=== PATIENT | female | born 1955 | race Caucasian/White ===

== ENCOUNTER → 2018-02-02 | Day surgery (SDC) | payer BC ==
[~2018-02-02] MED LIST: AMLODIPINE BESYL5 MG PO; ASPIR 8181 MG PO; CALCIUM; CLONIDINE1 EAC1 TD; CRESTOR5 MG PO; FENOFIBRATE PO; FENTANYL CITRATE/PF 100MCG/2 ML INJ ONE; GLUCOSAMINE; LINZESS PO; LIPITOR PO; LISINOPRIL40 MG PO; LOSARTAN POTAS100 MG PO; METOPROLOL PO; METOPROLOL TAR100 MG PO; METOPROLOL TART50 MG PO; MIDAZOLAM HCL 2 MG/2 ML VIAL ONE; OMEPRAZOLE40 MG PO; PANTOPRAZOLE SO40 MG PO; PRISTIQ ER50 MG PO; PROPOFOL IV EMULSION 10 MG/ML 20 ML VIAL ONE; TRILIPIX135 MG PO; TYLENOL; VENLAFAXINE HCL75 M2 PO; [UNRECOGNIZED DRUG - OTHER] PO
--- NOTE | 2018-02-02 14:40 | Operative Report ---
DATE OF PROCEDURE: February 02, 2018 REFERRING PHYSICIAN: Dr. Rukhsana Abbasi. PROCEDURE PERFORMED: Esophagogastroduodenoscopy with biopsies. INDICATIONS FOR ESOPHAGOGASTRODUODENOSCOPY: Upper abdominal pain, nausea. MEDICATION: Patient was done under MAC. Please see anesthesiologist's note. PROCEDURE: With patient in the left lateral decubitus position, the flexible fiberoptic Olympus gastroscope was introduced into the esophagus under direct visualization without any difficulty. The esophagus appeared to be within normal limits. The scope was then advanced with ease into the stomach, traversing a large hiatal hernia measured at 5 cm in length, and the lower esophageal sphincter appeared somewhat incompetent. The mucosa overlying the antrum revealed some patchy intense erythema and low-grade to moderate edema, and biopsies were obtained and sent to stain for H. pylori. Several hyperplastic-appearing polyps were noted in the body. Some were partially excised with the cold biopsy forceps. Pylorus appeared to be of normal contour and shape, was intubated with ease, and the scope was advanced all the way to the 2nd portion of the duodenum. The scope was then withdrawn slowly. Mucosa overlying the proximal 2nd portion and the duodenal bulb appeared to be within normal limits. The scope was then withdrawn back into the stomach and retroflexed, and the previously described hiatal hernia was also noted in the retroflexed position. The scope was then straightened out. It was subsequently withdrawn. Patient tolerated the procedure well. IMPRESSION: 1. Normal esophagus. 2. Lower esophageal sphincter somewhat incompetent. 3. Large hiatal hernia approximately 5 cm in length. 4. Gastritis biopsied. Biopsies sent to stain for H. pylori. 5. Gastric polyps, hyperplastic-appearing, body, some partially excised with the cold biopsy forceps. PLAN: Follow up histology. Continue current PPI therapy. Consider adding Carafate if the upper abdominal pain does not resolve. Job#: [id number] EV cc:RUKHSANA ABBASI MD
== END | disposition home or self-care (01) ==
LOC: ENDO 10:28
PROVIDERS: ATTEND Internal Medicine Gastroenterology
DX: K31.7 Polyp of stomach and duodenum (principal); K44.9 Diaphragmatic hernia without obstruction or gangrene; R10.10 Upper abdominal pain, unspecified; R11.0 Nausea; R14.0 Abdominal distension (gaseous); Z86.010 Personal history of colon polyps; I10 Essential (primary) hypertension; K21.9 Gastro-esophageal reflux disease without esophagitis; F41.9 Anxiety disorder, unspecified; E78.00 Pure hypercholesterolemia, unspecified; K22.0 Achalasia of cardia
CPT/HCPCS: 43239; 93005; J2250

== ENCOUNTER 2018-04-27 15:23 | Emergency (ER) | payer BC ==
[~2018-04-27] VITALS: Ht 157.5 cm; Wt 53.5 kg
[~2018-04-27 15:23] MED LIST changes: -FENTANYL CITRATE/PF 100MCG/2 ML INJ ONE; -MIDAZOLAM HCL 2 MG/2 ML VIAL ONE; -PROPOFOL IV EMULSION 10 MG/ML 20 ML VIAL ONE
--- OUTSIDE RECORDS SUMMARY | 2018-04-27 15:26 | XMS REPORT | Clinical Summary ---
Author Author JESS [facility] Address Unknown Phone Unavailable Care Team Providers Care Records Specialist Name Role Phone NickSam hsieh PCP Sharpless Unavailable Allergies No Known Allergies Medications End Date Status Medication Sig Dispensed Refills Start Date Active metoprolol (LOPRESSOR) Take 100 mg 0 100 MG tablet by mouth 2 (two) times daily. Active lisinopril Take 20 mg by 0 (PRINIVIL,ZESTRIL) 20 MG mouth daily. tablet Active atorvastatin (LIPITOR) 10 Take 10 mg by 0 MG tablet mouth daily. Active Problems Not on file Social History Date Tobacco Use Types Packs/Day Years Used Unknown If Ever Smoked Alcohol Use Drinks/Week oz/Week Comments Yes Sex Assigned at Date Recorded Not on file Industry Job Start Date Occupation Not on file Not on file Not on file Travel End Travel History Travel Start No recent travel history available. Last Filed Vital Signs Not on file Plan of Treatment Not on file Results Not on fileafter 04/26/2017 Insurance Payer Benefit Subscriber ID Type Phone Address Plan / Group [facility] H[facility]/POS CARE POS SELECT CHOICE
[2018-04-27] MEDS ORDERED: SODIUM CHLORIDE 0.9% 1000ML 1,000 ML IV ONE (17:45)
[2018-04-27 17:52] LABS: BASOPHILS % 0.2 % (0.0-1.0); EOSINOPHILS % 0.2 % (0.0-6.0); HEMATOCRIT 32.3 % (34.2-44.1); HEMOGLOBIN 10.5 g/dL (12.0-16.0); LYMPHOCYTES # (AUTO) 1.1 (1.0-3.2); LYMPHOCYTES % 9.1 % (18.0-39.1); MEAN CORPUSCULAR HGB CONC 32.5 g/dL (31-35); MEAN CORPUSCULAR VOLUME 89.2 fL (81-99); MONOCYTES # (AUTO) 0.8 (0.2-0.8); MONOCYTES % 6.8 % (4.4-11.3); NEUTROPHILS # (AUTO) 10.2 (2.1-6.9); NEUTROPHILS % 83.3 % (38.7-80.0); PLATELET COUNT 214 x10e3/uL (140-360); RED BLOOD COUNT 3.62 x10e6/uL (3.6-5.1); RED CELL DISTRIBUTION WIDTH 13.1 % (11.7-14.4)
[2018-04-27] MEDS ORDERED: ONDANSETRON HCL INJ 2 MG/ML VIAL ONE (17:52)
[2018-04-27] MEDS ORDERED: KETOROLAC TROMETHAMINE 30 MG/ML VIAL IV ONE (18:00)
[2018-04-27 18:04] LABS: ANION GAP 15.8 mmol/L (8-16); BLOOD UREA NITROGEN 8 mg/dL (7-26); BUN/CREATININE RATIO 11 (6-25); CALCIUM 9.5 mg/dL (8.4-10.2); CARBON DIOXIDE 21 mmol/L (22-29); CHLORIDE 102 mmol/L (98-107); CLARITY,URINE SL CLOUDY (CLEAR); COLOR,URINE YELLOW (YELLOW); CREATININE, SERUM 0.74 mg/dL (0.57-1.11); EST GLOMERULAR FILTRATION RATE > 60 ML/MIN (60-); GLUCOSE 133 mg/dL (74-118); LEUKOCYTE ESTERASE ,URINE TRACE (NEGATIVE); NITRITE,URINE NEGATIVE (NEGATIVE); POTASSIUM 3.8 mmol/L (3.5-5.1); PROTEIN,URINE DIPSTICK TRACE (NEGATIVE); SODIUM 135 mmol/L (136-145)
[2018-04-27 18:05] LABS: BILIRUBIN,URINE NEGATIVE (NEGATIVE); KETONES,URINE TRACE (NEGATIVE); URINE UROBILINOGEN 0.2 mg/dL (0.2 - 1)
[2018-04-27] MEDS ORDERED: ONDANSETRON HCL INJ 2 MG/ML VIAL IV ONE (18:30)
[2018-04-27 18:35] LABS: BACTERIA,URINE FEW /HPF; EPITHELIAL CELLS,URINE FEW /LPF
[2018-04-27 18:36] LABS: CALCIUM OXALATE CRYSTALS,UR MODERATE (FEW)
--- NOTE | 2018-04-27 19:48 | Diagnostic Imaging Report ---
CHEST 2 VIEWS, Technique: CHEST 2 VIEWS Clinical history: Fever Comparison: 08/02/2015 DISCUSSION: Borderline cardiomegaly. Small to moderate hiatal hernia. Well-defined right middle lobe and lingular opacity and no effusion or pneumothorax. 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 Recommend 6-8 week follow-up to reassess. Signed by: Dr Hannah Ordaz MD on 04/27/2018 7:44 PM
[2018-04-27 20:51] VITALS: BP 125/70
== END 2018-04-27 21:08 | disposition home or self-care (01) ==
LOC: ER 15:23
DX: R50.9 Fever, unspecified (principal); N30.90 Cystitis, unspecified without hematuria; B34.9 Viral infection, unspecified
CPT/HCPCS: 36415; 71046; 80048; 81001; 85025; 87400; 99284; J1885; J2405; J7030

== ENCOUNTER 2018-05-02 16:57 | Inpatient (IN) | payer BC ==
[~2018-05-02] VITALS: Ht 157.5 cm; Wt 54.4 kg
--- OUTSIDE RECORDS SUMMARY | 2018-05-02 16:59 | XMS REPORT | Clinical Summary ---
Author Author JESS [facility] Address Unknown Phone Unavailable Care Team Providers Care Tube Former Operator Name Role Phone NickSam hsieh PCP Sharpless [...] Not on file Results Not on fileafter 05/01/2017 Insurance Payer Benefit Subscriber ID Type Phone Address Plan / Group [facility]/POS CARE POS SELECT CHOICE
[2018-05-02] MEDS ORDERED: SODIUM CHLORIDE 0.9% 1000ML 1,000 ML IV SCH ×2 (17:45→18:49)
[2018-05-02] MEDS ORDERED: PROMETHAZINE 12.5MG/ NACL 0.9% 12.5 MG/50 ML BAG IV ONE (17:45)
[2018-05-02 18:28] LABS: BASOPHILS % 0.3 % (0.0-1.0); EOSINOPHILS # (AUTO) 0.1 (0.0-0.4); EOSINOPHILS % 1.2 % (0.0-6.0); HEMATOCRIT 30.7 % (34.2-44.1); HEMOGLOBIN 10.1 g/dL (12.0-16.0); LYMPHOCYTES # (AUTO) 1.4 (1.0-3.2); MEAN CORPUSCULAR HEMOGLOBIN 28.7 pg (28-32); MEAN CORPUSCULAR HGB CONC 32.9 g/dL (31-35); MEAN CORPUSCULAR VOLUME 87.2 fL (81-99); MONOCYTES # (AUTO) 1.3 (0.2-0.8); MONOCYTES % 13.3 % (4.4-11.3); NEUTROPHILS # (AUTO) 6.7 (2.1-6.9); NEUTROPHILS % 69.8 % (38.7-80.0); PLATELET COUNT 334 x10e3/uL (140-360); RED BLOOD COUNT 3.52 x10e6/uL (3.6-5.1); RED CELL DISTRIBUTION WIDTH 12.7 % (11.7-14.4)
[2018-05-02 18:32] LABS: BILIRUBIN,URINE 1+ (NEGATIVE); CLARITY,URINE SL CLOUDY (CLEAR); COLOR,URINE YELLOW (YELLOW); KETONES,URINE TRACE (NEGATIVE); LEUKOCYTE ESTERASE ,URINE NEGATIVE (NEGATIVE); NITRITE,URINE NEGATIVE (NEGATIVE); PROTEIN,URINE DIPSTICK TRACE (NEGATIVE); URINE UROBILINOGEN 0.2 mg/dL (0.2 - 1)
[2018-05-02 18:43] LABS: AMORPHOUS SEDIMENT,URINE MODERATE (FEW); BACTERIA,URINE MODERATE /HPF; EPITHELIAL CELLS,URINE MODERATE /LPF; MUCUS,URINE MODERATE (RARE); RBC,URINE 0-5 /HPF (0-5)
--- NOTE | 2018-05-02 18:43 | Diagnostic Imaging Report ---
EXAMINATION: PA and lateral views of the chest. COMPARISON: Chest 2 views 04/27/2018 CLINICAL HISTORY: Fever DISCUSSION: Lines/tubes: None. Lungs: The lungs are well inflated and clear. There is no evidence of pneumonia or pulmonary edema. Pleura: There is no pleural effusion or pneumothorax. Heart and mediastinum: Cardiomediastinal silhouette is unremarkable. Pulmonary vasculature is normal. Bones and soft tissues: No acute bony abnormalities. IMPRESSION: No acute cardiopulmonary abnormalities. Signed by: Dr. Francis Kothari M.D. on 05/02/2018 6:39 PM
[2018-05-02 18:46] LABS: ALANINE AMINOTRANSFERASE 9 IU/L (0-55); ALBUMIN 3.4 g/dL (3.5-5.0); ALBUMIN/GLOBULIN RATIO 0.9 (0.8-2.0); ALKALINE PHOSPHATASE 74 IU/L (40-150); ANION GAP 16.7 mmol/L (8-16); BLOOD UREA NITROGEN 9 mg/dL (7-26); BUN/CREATININE RATIO 12 (6-25); CALCIUM 9.6 mg/dL (8.4-10.2); CARBON DIOXIDE 24 mmol/L (22-29); CHLORIDE 98 mmol/L (98-107); CREATININE, SERUM 0.75 mg/dL (0.57-1.11); EST GLOMERULAR FILTRATION RATE > 60 ML/MIN (60-); GLUCOSE 111 mg/dL (74-118); SODIUM 136 mmol/L (136-145)
[2018-05-02 18:48] LABS: POTASSIUM 2.7 mmol/L (3.5-5.1)
--- OUTSIDE RECORDS SUMMARY | 2018-05-02 18:59 | XMS REPORT | Clinical Summary ---
Author Author JESS [facility] Address Unknown Phone Unavailable Care Team Providers Care Drop Shipment Clerk Name Role Phone NickSam hsieh PCP Sharpless [...] ID Type Phone Address Plan / Group [facility] H[facility]/POS CARE POS SELECT CHOICE
[2018-05-02] MEDS ORDERED: MORPHINE SULFATE 2 MG/ML SYR IV PRN (19:00)
[2018-05-02] MEDS ORDERED: MORPHINE SULFATE INJ 4 MG/ML INJ IV PRN (19:00)
[2018-05-02] MEDS ORDERED: ONDANSETRON HCL INJ 2 MG/ML VIAL IV PRN (19:00)
[2018-05-02] MEDS ORDERED: POTASSIUM CHLORIDE 20 MEQ TAB CR PO ONE (19:15)
[2018-05-02 19:29] LABS: EOSINOPHILS % (MANUAL) 1 % (0-7); HYPOCHROMASIA SLIGHT; LYMPHOCYTES % (MANUAL) 8 % (19-48); MONOCYTES % (MANUAL) 9 % (3.4-9.0); NEUTROPHILS % (MANUAL) 79 % (40-74); PLATELET ESTIMATE ADEQUATE; PLATELET MORPHOLOGY COMMENT FEW GIANT; RBC MORPHOLOGY COMMENT NORMAL
[2018-05-02] MEDS ORDERED: CLONIDINE HCL0.1 MG PO (20:03)
[2018-05-02] MEDS ORDERED: METOCLOPRAMIDE10 MG PO (20:03)
[2018-05-02 20:04] VITALS: BP 180/80
[2018-05-02 20:10] VITALS: BP 180/80
[2018-05-02] MEDS: ACETAMINOPHEN 1000 MG/100 ML IV PRN (22:51)
[2018-05-02] MEDS: KCL 20MEQ/.9 SOD CHL 1,000 ML IV SCH (23:15)
[2018-05-03] VITALS (8 sets, daily range): BP systolic 143–169; BP diastolic 65–74
[2018-05-03] MEDS: IBUPROFEN 600 MG TAB PO PRN (03:24)
--- NOTE | 2018-05-03 07:25 | History and Physical ---
Patient came in with abdominal pain, intractable nausea and vomiting. HISTORY OF PRESENT ILLNESS: This is . Ysabel Davalos with a recent history of nausea and vomiting. Has been to the ER about a week ago. Was treated for a urinary tract infection and sent home. The patient continues to have intractable nausea and vomiting, and was treated with Cipro. The patient came back to the clinic and was given Phenergan multiple times with PPIs. The patient's symptoms did not get better. Came into the emergency room yesterday, and was admitted for intractable nausea and vomiting, hypokalemia, and a left shift too. PAST MEDICAL HISTORY: History of hypertension, history of depression, history of reflux esophagitis, history of using UTI medicine, and also constipation. MEDICATIONS: She is taking at home: 1. Clonidine 0.1 mg p.r.n. 2. Takes Pristiq 50 mg daily. 3. Metoclopramide 10 mg daily. 4. Metoprolol 100 mg twice a day. 5. Pantoprazole 40 mg daily. 6. Linzess 1 tablet daily. PAST SURGICAL HISTORY: Includes history of cholecystectomy, history of appendectomy and history of hysterectomy. The patient recently had a spinal fusion, which was intra-abdominally and also through the back. REVIEW OF SYSTEMS: Negative for chest pain. Positive for nausea and vomiting. Negative for diarrhea. Positive for constipation. No rectal bleeding. No hematochezia. No hematemesis. No dysuria. No diplopia. No blurry vision. No headache. No chest pain. SOCIAL HISTORY: No ETOH. No IV drug abuse. Lives with and is currently still working. PHYSICAL EXAMINATION VITAL SIGNS: Temperature is 99.5, T-max is 101.1, pulse is 76, respirations 16, blood pressure is 147/65. Came in at 160/72. Pulse ox is 94% on room air. HEENT: Normocephalic and atraumatic. There is no icterus present. Throat positive for erythema secondary to the vomitus. Tongue normal and midline. NECK: No JVD present. CARDIOVASCULAR: S1 and S2 normal. Regular rate and rhythm. ABDOMEN: Tender in the epigastric area and the periumbilical area. Tenderness in the left lower quadrant. No rebound tenderness either. EXTREMITIES: No clubbing. No cyanosis. No edema. LABORATORY VALUES: Initial white count was 9.56, hemoglobin 10.1, hematocrit 30.7, lymphocyte count low, monocytes of 13.3, neutrophil count was 79 with a left shift. Chemistry: Sodium 136, potassium of 2.7, BUN 9, creatinine 0.75. Urine: Bilirubin was positive. Amorphous sediment moderate, bacteria positive, and nitrites negative. Serology: Influenza was negative. Cultures are pending at this time. FINAL DIAGNOSES 1. Intractable nausea and vomiting for the last 3 days. 2. Dehydration. 3. Hypokalemia. 4. Abdominal pain. 5. History of recent surgery. 6. Febrile illness. 7. History of hypertension. 8. History of reflux esophagitis. PLAN: Continue with the drip that she is on with potassium in it. Will recheck her sodium and potassium tomorrow. Continue monitoring of her . CT scan of the abdomen will be done with contrast to rule out any abdominal pathology. Consult with Dr. Milad Archer has been done too. Sed rate and CRP will be done also to see if this is an inflammatory process. Further recommendations per clinical course. Will continue monitoring the patient. Job#: [id number] LEO
[2018-05-03] MEDS ORDERED: SODIUM CHLORIDE 0.9% 50ML 50 ML ONE (09:50)
[2018-05-03] MEDS ORDERED: IOPAMIDOL 370 MG/ML 200 ML INFUS..BTL INJ ONE (09:51)
[2018-05-03] MEDS: PROMETHAZINE 25MG/ NS 50ML (IV) IV PRN ×3 (09:51→19:00)
--- NOTE | 2018-05-03 10:48 | Diagnostic Imaging Report ---
PROCEDURE: CT ABDOMEN AND PELVIS WITH CONTRAST TECHNIQUE: The abdomen and pelvis were scanned utilizing a multidetector helical scanner from the diaphragm to the lesser trochanter after the IV administration of 100 cc of Isovue 370 and the oral administration of 900 cc of water. Coronal and sagittal multiplanar reformations were obtained. COMPARISON: CT Abdomen/Pelvis 02/22/2010. INDICATIONS: NAUSEA, VOMITING, FEVER, ABDOMEN PAIN FINDINGS: LOWER THORAX: Large hiatal hernia. HEPATOBILIARY: No focal hepatic lesions. No biliary ductal dilatation. Status post cholecystectomy. SPLEEN: No splenomegaly. PANCREAS: No focal masses or ductal dilatation. ADRENALS: No adrenal nodules. KIDNEYS/URETERS: Mild to moderate left hydronephrosis likely due to mass effect on the mid ureter from the left pelvic inflammatory process. No stones or solid mass lesions. Subcentimeter left renal hypodensity is too small to characterize, but likely represents a cyst. PELVIC ORGANS/BLADDER: Status post hysterectomy. There is a 2.3 x 4.4 x 6.5 cm (oblique AP x TV x SI) left pelvic/lower abdominal fluid collection which is contiguous with a smaller 2.4 x 1 cm collection. There is surrounding inflammatory changes. The spinal fixation left S1 pedicle screw appears to be within the superior aspect of the collection. PERITONEUM / RETROPERITONEUM: Small amount of free fluid in the pelvis. LYMPH NODES: No lymphadenopathy. VESSELS: Unremarkable. GI TRACT: No distention or wall thickening. Interval removal of previously noted likely mucocele at the location of the appendix. BONES AND SOFT TISSUES: Multilevel degenerative changes of the lower lumbar spine. Post surgical changes are present in the anterior abdominal wall and lower back. Post surgical changes related to posterior decompression and fusion at L4-S1, the inferior left S1 pedicle screw appears to be in the superior aspect of the collection. No definite bony destructive change. IMPRESSION: Left pelvic multiloculated collection with surrounding inflammatory change, measuring up to 6.5 cm. The S1 pedicle screw appears to be within the collection, no definite osteomyelitis. Discussion with surgical team given surgery approximately 2 weeks prior is suggested. IR consult for drainage is also suggested. Above findings discussed with Dr. Andrei Rosenberg on 05/03/18 at 1042 AM. Surrounding inflammatory change with likely mass effect on the left mid ureter with mild to moderate hydronephrosis. Drainage of the left pelvic collection is suggested to decrease mass effect. Dictated by: SO KING M.D. on 05/03/2018 at 10:56 Electronically approved by: SO KING M.D. on 05/03/2018 at 10:56
[2018-05-03] MEDS: ACETAMINOPHEN 1000 MG/100 ML IV PRN ×2 (12:05→19:40)
[2018-05-03] MEDS ORDERED: FENTANYL CITRATE/PF 100MCG/2 ML INJ ONE (13:11)
[2018-05-03] MEDS ORDERED: MIDAZOLAM HCL 2 MG/2 ML VIAL ONE (13:11)
[2018-05-03] MEDS: CEFEPIME HCL 2 GM VIAL IV SCH (13:30)
[2018-05-03 13:37] LABS: INR 0.97; PROTHROMBIN TIME 13.8 seconds (11.9-14.5)
--- NOTE | 2018-05-03 13:57 | Consultation ---
DATE OF CONSULTATION: May 03, 2018 INFECTIOUS DISEASE CONSULTATION REASON FOR CONSULTATION: Fever, abdominal pain. HISTORY OF PRESENT ILLNESS: Ms. Ysabel Lopez 6 weeks ago had surgery on her lumbar spine, anterior approach, and a few days later there was a posterior approach. The patient 5 weeks later started to have fever, chills, nausea, vomiting, abdominal pain. Patient went to the emergency room about a week ago, and she was diagnosed with UTI and given Cipro, and now her symptoms are getting worse. So, she came back and she is being admitted. The patient has underlying history of hypertension, depression, esophagitis, recurrent apparently UTI. HOME MEDICATIONS: She is on clonidine, Pristiq, metoclopramide, metoprolol and Linzess. PAST SURGICAL HISTORY: Cholecystectomy, appendectomy, hysterectomy. Six weeks ago she had spinal fusion with anterior approach through the abdomen and then through the back. ALLERGIES: NKA. SOCIAL HISTORY: There is no smoking, drug abuse, alcohol abuse. FAMILY HISTORY: Otherwise unremarkable. REVIEW OF SYSTEMS HEENT: There is no headache or visual changes, hearing changes. GI: There is nausea. Her laboratory data reviewed. White count 9.56, hemoglobin of 10, hematocrit of 30. Sodium 136, potassium 2.7, creatinine 0.76. She had a CT of the abdomen and pelvis which showed left pelvic multiloculated collection with inflammatory changes. PHYSICAL EXAMINATION GENERAL: She is alert, oriented, does not seem to be in acute distress. VITAL SIGNS: Stable. Currently afebrile. HEENT: She does not appear icteric. NECK: Supple. CHEST: Clear. HEART: S1 and S2. No S3 or S4, no murmur. ABDOMEN: Soft. Bowel sounds present. No tenderness. She has diffuse discomfort. EXTREMITIES: No edema. SKIN: No rash. IMPRESSION: Intra-abdominal abscess. Concern is related to the previous back surgery. Will put the patient on vancomycin, cefepime and Flagyl. IR for aspiration. Send culture and sensitivity. Because of multiloculated, she may end up with prolonged course of IV antibiotic. Will see how she is going to do clinically. Will follow with you. Job#: [id number] EV
[2018-05-03] MEDS: VANCOMYCIN 1GM/NS 250 ML 250 ML IV SCH (14:40)
[2018-05-03] MEDS ORDERED: LIDOCAINE HCL 1% LOCAL INJ 20 ML VIAL ONE (15:44)
[2018-05-03 17:13] LABS: BODY FLUID APPEARANCE TURBID; BODY FLUID COLOR RED; BODY FLUID TYPE PERITONEAL
[2018-05-03] MEDS: KCL 20MEQ/.9 SOD CHL 1,000 ML IV SCH ×2 (18:02→22:50)
[2018-05-03 18:26] LABS: RBC,BODY FLUID 50391 cells/uL; WBC,BODY FLUID 18909 cells/uL
[2018-05-03 18:38] LABS: LYMPHOCYTES,BODY FLUID 8 %; MONO/MACROPHG,BODY FLUID 39 %; NEUTROPHILS,BODY FLUID 53 %
[2018-05-04] VITALS (7 sets, daily range): BP systolic 142–171; BP diastolic 72–96
[2018-05-04] MEDS: CEFEPIME HCL 2 GM VIAL IV SCH ×2 (01:08→12:43)
[2018-05-04] MEDS: VANCOMYCIN 1GM/NS 250 ML 250 ML IV SCH ×2 (01:08→14:03)
[2018-05-04] MEDS: PROMETHAZINE 25MG/ NS 50ML (IV) IV PRN (03:00)
[2018-05-04] MEDS ORDERED: PANTOPRAZOLE 40 MG 10ML VIAL IV STA (03:48)
[2018-05-04] MEDS ORDERED: PANTOPRAZOL 40MG/SOD CHL 0.9% 250 ML IV SCH (04:00)
[2018-05-04] MEDS ORDERED: METOCLOPRAMIDE HCL 10 MG/2ML VIAL IV ONE (04:00)
[2018-05-04 04:56] LABS: BASOPHILS % 0.3 % (0.0-1.0); EOSINOPHILS % 0.1 % (0.0-6.0); HEMATOCRIT 29.1 % (34.2-44.1); HEMOGLOBIN 9.2 g/dL (12.0-16.0); LYMPHOCYTES # (AUTO) 1.8 (1.0-3.2); LYMPHOCYTES % 13.1 % (18.0-39.1); MEAN CORPUSCULAR HEMOGLOBIN 28.3 pg (28-32); MEAN CORPUSCULAR HGB CONC 31.6 g/dL (31-35); MEAN CORPUSCULAR VOLUME 89.5 fL (81-99); MONOCYTES # (AUTO) 0.9 (0.2-0.8); MONOCYTES % 6.3 % (4.4-11.3); NEUTROPHILS # (AUTO) 10.7 (2.1-6.9); NEUTROPHILS % 79.5 % (38.7-80.0); PLATELET COUNT 284 x10e3/uL (140-360); RED BLOOD COUNT 3.25 x10e6/uL (3.6-5.1); RED CELL DISTRIBUTION WIDTH 12.8 % (11.7-14.4)
[2018-05-04 05:11] LABS: ALANINE AMINOTRANSFERASE 8 IU/L (0-55); ALBUMIN/GLOBULIN RATIO 0.9 (0.8-2.0); ALKALINE PHOSPHATASE 74 IU/L (40-150); ANION GAP 20.8 mmol/L (8-16); BLOOD UREA NITROGEN 6 mg/dL (7-26); BUN/CREATININE RATIO 9 (6-25); CALCIUM 9.3 mg/dL (8.4-10.2); CARBON DIOXIDE 18 mmol/L (22-29); CHLORIDE 104 mmol/L (98-107); CREATININE, SERUM 0.64 mg/dL (0.57-1.11); EST GLOMERULAR FILTRATION RATE > 60 ML/MIN (60-); GLUCOSE 100 mg/dL (74-118); POTASSIUM 3.8 mmol/L (3.5-5.1); SODIUM 139 mmol/L (136-145)
[2018-05-04 06:30] LABS: LYMPHOCYTES % (MANUAL) 8 % (19-48); MONOCYTES % (MANUAL) 7 % (3.4-9.0); MYELOCYTES % (MANUAL) 1 % (0-0); NEUTROPHILS % (MANUAL) 84 % (40-74); PLATELET ESTIMATE ADEQUATE; PLATELET MORPHOLOGY COMMENT NORMAL; RBC MORPHOLOGY COMMENT NORMAL
[2018-05-04] MEDS ORDERED: HYDRALAZINE HCL 20 MG/ML VIAL IV PRN (07:15)
[2018-05-04] MEDS: KCL 20MEQ/.9 SOD CHL 1,000 ML IV SCH (12:29)
[2018-05-04] MEDS: METOCLOPRAMIDE HCL 10 MG/2ML VIAL IV PRN ×2 (12:29→18:34)
[2018-05-04] MEDS: PANTOPRAZOL 40MG/SOD CHL 0.9% 50 ML IV SCH ×3 (12:43→23:19)
[2018-05-04] MEDS: ACETAMINOPHEN 1000 MG/100 ML IV PRN (16:22)
[2018-05-05] VITALS (9 sets, daily range): BP systolic 164–188; BP diastolic 64–94
[2018-05-05] MEDS: ACETAMINOPHEN 1000 MG/100 ML IV PRN (00:01)
[2018-05-05] MEDS: KCL 20MEQ/.9 SOD CHL 1,000 ML IV SCH ×4 (00:22→20:14)
[2018-05-05] MEDS ORDERED: METOCLOPRAMIDE HCL 10 MG/2ML VIAL IV ONE (00:45)
[2018-05-05] MEDS: CEFEPIME HCL 2 GM VIAL IV SCH ×2 (01:14→14:24)
[2018-05-05] MEDS: VANCOMYCIN 1GM/NS 250 ML 250 ML IV SCH ×2 (02:31→14:31)
[2018-05-05] MEDS: PANTOPRAZOL 40MG/SOD CHL 0.9% 50 ML IV SCH ×4 (04:06→20:14)
[2018-05-05] MEDS: METOCLOPRAMIDE HCL 10 MG/2ML VIAL IV SCH ×3 (05:48→17:18)
[2018-05-05 06:52] LABS: BASOPHILS % 0.5 % (0.0-1.0); EOSINOPHILS # (AUTO) 0.4 (0.0-0.4); EOSINOPHILS % 4.9 % (0.0-6.0); HEMATOCRIT 24.9 % (34.2-44.1); HEMOGLOBIN 8.2 g/dL (12.0-16.0); LYMPHOCYTES # (AUTO) 1.1 (1.0-3.2); LYMPHOCYTES % 12.4 % (18.0-39.1); MEAN CORPUSCULAR HEMOGLOBIN 28.5 pg (28-32); MEAN CORPUSCULAR HGB CONC 32.9 g/dL (31-35); MEAN CORPUSCULAR VOLUME 86.5 fL (81-99); MONOCYTES # (AUTO) 0.8 (0.2-0.8); MONOCYTES % 9.5 % (4.4-11.3); NEUTROPHILS # (AUTO) 6.1 (2.1-6.9); NEUTROPHILS % 71.3 % (38.7-80.0); PLATELET COUNT 312 x10e3/uL (140-360); RED BLOOD COUNT 2.88 x10e6/uL (3.6-5.1)
[2018-05-05 07:12] LABS: ALANINE AMINOTRANSFERASE 10 IU/L (0-55); ALBUMIN 2.8 g/dL (3.5-5.0); ALBUMIN/GLOBULIN RATIO 0.8 (0.8-2.0); ALKALINE PHOSPHATASE 68 IU/L (40-150); BLOOD UREA NITROGEN < 5 mg/dL (7-26); CALCIUM 8.9 mg/dL (8.4-10.2); CARBON DIOXIDE 20 mmol/L (22-29); CHLORIDE 102 mmol/L (98-107); CREATININE, SERUM 0.57 mg/dL (0.57-1.11); EST GLOMERULAR FILTRATION RATE > 60 ML/MIN (60-); GLUCOSE 87 mg/dL (74-118); SODIUM 138 mmol/L (136-145)
[2018-05-05 07:17] LABS: BUN/CREATININE RATIO 9 (6-25)
[2018-05-05] MEDS: IBUPROFEN 600 MG TAB PO PRN (08:11)
[2018-05-05 08:18] LABS: BAND NEUTROPHILS % (MANUAL) 4 %; EOSINOPHILS % (MANUAL) 1 % (0-7); LYMPHOCYTES % (MANUAL) 13 % (19-48); MONOCYTES % (MANUAL) 6 % (3.4-9.0); NEUTROPHILS % (MANUAL) 76 % (40-74); PLATELET ESTIMATE ADEQUATE; PLATELET MORPHOLOGY COMMENT NORMAL; RBC MORPHOLOGY COMMENT NORMAL
[2018-05-05] MEDS ORDERED: POTASSIUM CHLORIDE 20MEQ/100ML 200 ML IV ONE (08:45)
[2018-05-05] MEDS ORDERED: CLONIDINE HCL 0.1 MG TAB PO PRN (12:30)
[2018-05-05] MEDS: METOPROLOL TARTRATE 50 MG TAB PO SCH (17:17)
[2018-05-05] MEDS: ZOLPIDEM TARTRATE 5 MG TAB PO PRN (20:14)
[2018-05-06] VITALS (7 sets, daily range): BP systolic 180–191; BP diastolic 84–89
[2018-05-06] MEDS: METOCLOPRAMIDE HCL 10 MG/2ML VIAL IV SCH ×4 (00:01→17:39)
[2018-05-06] MEDS: VANCOMYCIN 1GM/NS 250 ML 250 ML IV SCH ×2 (02:36→15:15)
[2018-05-06] MEDS: PANTOPRAZOL 40MG/SOD CHL 0.9% 50 ML IV SCH ×3 (02:36→15:15)
[2018-05-06] MEDS: CEFEPIME HCL 2 GM VIAL IV SCH ×2 (02:36→15:15)
[2018-05-06] MEDS: CLONIDINE HCL 0.1 MG TAB PO PRN ×3 (06:19→14:30)
--- NOTE | 2018-05-06 07:46 | Diagnostic Imaging Report ---
PROCEDURE:SONAL [facility] FLUID/ABSC W/CATH-CT COMPARISON:CT Abdomen/Pelvis 05/03/2018. INDICATIONS:intra abdominal ct guded drainage COASTAL AND ESTUARY SPECIALIST: Iram King MD ANESTHESIA: Moderate sedation administered by IR nursing. Continuous hemodynamic monitoring was performed. MEDICATIONS: 20 cc of 1% subcutaneous lidocaine Fentanyl and versed per nursing administration records FINDINGS: Informed consent was obtained. The patient was prepped and draped in sterile fashion. A path to the left pelvic collection was identified. Local 1% subcutaneous lidocaine was administered. With CT guidance, an 18 gauge Chiba needle was advanced into the collection. Subsequently, an Amplatz wire was placed into the collection. The needle was removed. Serial dilatation was performed. Subsequently, we placed a 10 Fr pigtail locking loop catheter into the collection. A total of 25 cc of purulent sanguinous fluid was removed. The catheter was secured with two Ethilon sutures and a sterile bandage was placed. CONCLUSION: CT guided drainage of left pelvic fluid collection as above. PLAN: Please flush 5 cc of saline towards the catheter and 5 cc towards the patient q 8 hours as inpatient and q 12 hours upon discharge for catheter patency. Please inform IR team once drainage is less than 10 cc/day, for assessment of catheter removal. Recommend contacting the patient's orthopedic surgery team regarding the proximity of the collection to the fixation hardware. Dictated by: IRAM KING M.D. on 05/06/2018 at 7:55 Electronically approved by: IRAM KING M.D. on 05/06/2018 at 7:55
[2018-05-06] MEDS: METOPROLOL TARTRATE 50 MG TAB PO SCH ×2 (08:30→17:39)
[2018-05-06] MEDS: ACETAMINOPHEN 325 MG TAB PO PRN (08:42)
[2018-05-06] MEDS: PROMETHAZINE HCL 25 MG TAB PO PRN (14:30)
--- NOTE | 2018-05-06 15:09 | Diagnostic Imaging Report ---
Examination: Single AP view of the chest. COMPARISON: None. INDICATION: PICC line placement DISCUSSION: Lines/tubes: Right PICC line placement appears to be overlying the superior vena cava Lungs: The lungs are well inflated and clear. There is no evidence of pneumonia or pulmonary edema. Pleura: There is no pleural effusion or pneumothorax. Heart and mediastinum: The heart and the mediastinum are unremarkable. Bones and soft tissues: No acute bony abnormalities. IMPRESSION: 1. Right PICC line placement appears to be overlying the superior vena cava Signed by: Dr. Sam Cárdenas M.D. on 05/06/2018 3:05 PM
[2018-05-06] MEDS: KCL 20MEQ/.9 SOD CHL 1,000 ML IV SCH (15:15)
--- NOTE | 2018-05-06 18:49 | Progress Note ---
DATE: May 06, 2018 Patient is doing better today. Her abdominal pain still persistent. The nausea still persists, but it is better. She is on high dose of Phenergan right now. Tolerating some fluids. Patient is currently on vancomycin, pantoprazole, and metoclopramide 10 mg q.6 h for her nausea. Patient's abdominal abscess has been drained and she is feeling better. EXAM VITAL SIGNS: Temperature is 98.8, blood pressure is 185/86, satting at 96%, respiratory rate of 16. HEENT: Normocephalic, atraumatic. Pupils react to light and accommodation. ABDOMEN: Slightly tender, nondistended. EXTREMITIES: No clubbing, no cyanosis, no edema. LUNGS: Clear to auscultation bilaterally. NECK: No JVDs. LAB VALUES: Potassium is 3.0, hemoglobin is 8.2, and hematocrit of 24.9, with white count of 8.53. Patient's differential with left shift still. Patient currently is on vancomycin as mentioned above. ASSESSMENT 1. Abdominal abscess, status post spine surgery, history of urinary tract infections. Microbiology still has no growth in the body fluid. 2. Anemia. Will continue monitoring it. Check iron panel. 3. Leukocytosis, resolved. 4. Sepsis, resolved. 5. Depression. Will restart her medications and hypertension. Will stop her IV fluids and also, resume her metoprolol, which is 100 mg twice a day, and clonidine 0.1 mg q.6 h. Further recommendation per clinical course. The patient also had a PICC line placement today for IV antibiotics, Merrem q.8 h for the next 10 days. Thus, the patient can do it as an outpatient basis. DISPOSITION: Probable discharge tomorrow depending on IV antibiotics being delivered. For further information, look in the chart. For medicines, look into the chart. Job#: [id number]
[2018-05-06] MEDS: ZOLPIDEM TARTRATE 5 MG TAB PO PRN (21:20)
[2018-05-07] VITALS: BP 169/81
[2018-05-07] MEDS: METOCLOPRAMIDE HCL 10 MG/2ML VIAL IV SCH ×4 (00:09→17:30)
[2018-05-07] MEDS: CEFEPIME HCL 2 GM VIAL IV SCH (01:30)
[2018-05-07] MEDS: VANCOMYCIN 1GM/NS 250 ML 250 ML IV SCH ×2 (01:30→14:10)
[2018-05-07 04:00] VITALS: BP 171/79
[2018-05-07 05:13] LABS: BASOPHILS % 0.5 % (0.0-1.0); EOSINOPHILS # (AUTO) 0.3 (0.0-0.4); EOSINOPHILS % 5.7 % (0.0-6.0); HEMATOCRIT 26.7 % (34.2-44.1); HEMOGLOBIN 8.8 g/dL (12.0-16.0); LYMPHOCYTES % 17.7 % (18.0-39.1); MEAN CORPUSCULAR HEMOGLOBIN 28.2 pg (28-32); MEAN CORPUSCULAR VOLUME 85.6 fL (81-99); MONOCYTES # (AUTO) 0.6 (0.2-0.8); MONOCYTES % 10.4 % (4.4-11.3); NEUTROPHILS # (AUTO) 3.6 (2.1-6.9); NEUTROPHILS % 64.1 % (38.7-80.0); PLATELET COUNT 334 x10e3/uL (140-360); RED BLOOD COUNT 3.12 x10e6/uL (3.6-5.1); RED CELL DISTRIBUTION WIDTH 12.8 % (11.7-14.4)
[2018-05-07 05:35] LABS: ALANINE AMINOTRANSFERASE 8 IU/L (0-55); ALBUMIN 2.8 g/dL (3.5-5.0); ALBUMIN/GLOBULIN RATIO 0.8 (0.8-2.0); ALKALINE PHOSPHATASE 66 IU/L (40-150); ANION GAP 19.1 mmol/L (8-16); BLOOD UREA NITROGEN 7 mg/dL (7-26); BUN/CREATININE RATIO 12 (6-25); CALCIUM 9.1 mg/dL (8.4-10.2); CARBON DIOXIDE 22 mmol/L (22-29); CHLORIDE 98 mmol/L (98-107); CREATININE, SERUM 0.57 mg/dL (0.57-1.11); EST GLOMERULAR FILTRATION RATE > 60 ML/MIN (60-); GLUCOSE 95 mg/dL (74-118); POTASSIUM 3.1 mmol/L (3.5-5.1); SODIUM 136 mmol/L (136-145)
[2018-05-07 06:41] LABS: % IRON SATURATION 15 % (15-50); IRON 35 ug/dL (50-170); TOTAL IRON BINDING CAPACITY 228 ug/dL (261-478); TRANSFERRIN 163 mg/dL (180-382)
--- NOTE | 2018-05-07 07:59 | Progress Note ---
DATE: May 07, 2018 The patient is better. Tolerating soft diet right now. Abdominal pain is still present though. No fever. OBJECTIVE VITAL SIGNS: 98.6 temperature, pulse is 66, blood pressure is 171/79, SpO2 of 95%. HEENT: Normocephalic and atraumatic. Pupils equal and reactive to light and accommodation. CV: S1 and S2 normal. Regular rate and rhythm. ABDOMEN: Slightly tender in the left lower quadrant. Positive for percutaneous drain there. EXTREMITIES: No clubbing. No cyanosis. No edema. LAB VALUES: Sodium is 136, potassium 3.1. Hemoglobin of 8.8 and hematocrit of 26.7. The patient's iron was 35, TIBC of 228, percent saturation 15, and transferrin 163. Albumin is normal. ASSESSMENT 1. Intractable nausea and vomiting. 2. Abdominal abscess: Status post spinal surgery. 3. Hypokalemia: Will go ahead and replace potassium. 4. The patient has anemia, iron deficiency: Probably will need iron transfusions. Will go ahead and give her Venofer today. 5. Pelvic abscess: Status post insertion of subcutaneous drain. Will continue monitoring the fluids from the drain. At this time, will keep her here 1 more day. Probably discharge tomorrow after removal of percutaneous drain depending on the output from the drain. Will continue antibiotic of vancomycin and cefepime. The patient will be discharged home with them, or as per ID recommendations. 6. Hypertension: Continue with home medications. 7. Intractable nausea and vomiting: Will continue with Phenergan. Will see the patient late tonight, and if the drain has not been draining, we can discharge her or in the morning. For further information, look in the chart. Job#: [id number] DC
[2018-05-07 08:00] VITALS: BP 187/85
[2018-05-07] MEDS: PANTOPRAZOLE 40 MG 10ML VIAL IV SCH ×2 (08:30→17:00)
[2018-05-07] MEDS: METOPROLOL TARTRATE 50 MG TAB PO SCH ×2 (08:30→17:00)
[2018-05-07] MEDS: DESVENLAFAXINE SUCCINATE 50 MG TAB.SR.24H PO SCH (08:30)
[2018-05-07] MEDS ORDERED: POTASSIUM CHLORIDE 20 MEQ TAB CR PO NR (09:30)
[2018-05-07] MEDS: PROMETHAZINE HCL 25 MG TAB PO PRN ×2 (09:42→21:30)
[2018-05-07] MEDS: IRON SUCROSE 100 MG in SODIUM CHLORIDE 0.9% 100 ML 100 ML IV SCH (09:42)
[2018-05-07 12:00] VITALS: BP 173/84
[2018-05-07] MEDS: MEROPENEM 500 MG VIAL IV SCH ×2 (12:37→20:01)
[2018-05-07] MEDS ORDERED: MEROPENEM 500MG 500 MG in SODIUM CHLORIDE 0.9% 50ML 50 ML IV SCH (14:00)
--- NOTE | 2018-05-07 15:35 | Diagnostic Imaging Report ---
CT the pelvis. History: Pelvic abscess with drainage catheter placed 4 days prior. Comparison: CT pelvis dated 05/03/2018. Technique: Multidetector imaging of the pelvis was performed from the level of the iliac crests to the proximal femurs. No IV or oral contrast was administered. Scans through the pelvis were performed without contrast administration then followed by contrast administration into the pelvic abscess drainage catheter. Dose reduction technique was utilized. DLP: 364.51 mGy-cm Discussion: Left-sided pelvic drainage catheter noted in place. Size of the fluid collection is smaller. Contrast injection shows some contrast around the pigtail catheter extending near the iliacus muscle. Of note is that there is some contrast within loops of bowel suggesting that the drainage catheter has traversed a loop of bowel. Seeing how there is still purulent drainage in the bag it was elected not to remove this catheter. Infectious disease Physician was notified of these findings. Prior to removal of the catheter in 5-7 days contrast should be injected again with a fluoroscopic monitoring to evaluate for any GI bowel loop communication or opacification. IMPRESSION: 1. Left-sided pelvic drainage catheter is described above. 2. Catheter was not removed at this time. 3. Prior to catheter removal a fluoroscopic injection looking for bowel loop opacification is suggested. Signed by: Dr. Maximiliano Schneider DO on 05/07/2018 3:31 PM
[2018-05-07 16:00] VITALS: BP 133/63
[2018-05-07] MEDS: ACETAMINOPHEN 325 MG TAB PO PRN (17:07)
[2018-05-07] MEDS: ZOLPIDEM TARTRATE 5 MG TAB PO PRN (20:01)
[2018-05-07 20:30] VITALS: BP 159/74
[2018-05-08] VITALS: BP_SYST 152; BP_SYST 159; BP_DIAS 70; BP_DIAS 74
[2018-05-08] MEDS: METOCLOPRAMIDE HCL 10 MG/2ML VIAL IV SCH ×3 (00:01→10:54)
[2018-05-08 01:02] VITALS: BP 159/74
[2018-05-08] MEDS: VANCOMYCIN 1GM/NS 250 ML 250 ML IV SCH (01:30)
[2018-05-08 04:00] VITALS: BP 148/79
[2018-05-08] MEDS: MEROPENEM 500 MG VIAL IV SCH ×2 (04:00→10:54)
[2018-05-08 05:08] LABS: BASOPHILS # (AUTO) 0.1 (0.0-0.1); BASOPHILS % 0.8 % (0.0-1.0); EOSINOPHILS # (AUTO) 0.4 (0.0-0.4); EOSINOPHILS % 6.6 % (0.0-6.0); HEMATOCRIT 26.8 % (34.2-44.1); HEMOGLOBIN 8.8 g/dL (12.0-16.0); LYMPHOCYTES # (AUTO) 1.3 (1.0-3.2); LYMPHOCYTES % 19.7 % (18.0-39.1); MEAN CORPUSCULAR HEMOGLOBIN 28.3 pg (28-32); MEAN CORPUSCULAR HGB CONC 32.8 g/dL (31-35); MEAN CORPUSCULAR VOLUME 86.2 fL (81-99); MONOCYTES # (AUTO) 0.7 (0.2-0.8); MONOCYTES % 11.3 % (4.4-11.3); NEUTROPHILS # (AUTO) 3.9 (2.1-6.9); NEUTROPHILS % 60.2 % (38.7-80.0); PLATELET COUNT 355 x10e3/uL (140-360); RED BLOOD COUNT 3.11 x10e6/uL (3.6-5.1); RED CELL DISTRIBUTION WIDTH 12.9 % (11.7-14.4)
[2018-05-08 05:40] LABS: ANION GAP 15.4 mmol/L (8-16); BLOOD UREA NITROGEN 7 mg/dL (7-26); BUN/CREATININE RATIO 11 (6-25); CALCIUM 9.3 mg/dL (8.4-10.2); CARBON DIOXIDE 24 mmol/L (22-29); CHLORIDE 101 mmol/L (98-107); CREATININE, SERUM 0.61 mg/dL (0.57-1.11); EST GLOMERULAR FILTRATION RATE > 60 ML/MIN (60-); GLUCOSE 105 mg/dL (74-118); POTASSIUM 3.4 mmol/L (3.5-5.1); SODIUM 137 mmol/L (136-145)
[2018-05-08 07:30] VITALS: BP 141/67
[2018-05-08 09:00] VITALS: BP 141/67
[2018-05-08] MEDS: PANTOPRAZOLE 40 MG 10ML VIAL IV SCH (09:25)
[2018-05-08] MEDS: METOPROLOL TARTRATE 50 MG TAB PO SCH (09:25)
[2018-05-08] MEDS: DESVENLAFAXINE SUCCINATE 50 MG TAB.SR.24H PO SCH (09:25)
[2018-05-08] MEDS: IRON SUCROSE 100 MG in SODIUM CHLORIDE 0.9% 100 ML 100 ML IV SCH (09:25)
[2018-05-08] MEDS: PROMETHAZINE HCL 25 MG TAB PO PRN (10:54)
--- NOTE | 2018-05-08 10:57 | Progress Note ---
DATE: May 08, 2018 The patient is here for abdominal pain and abdominal abscess, status post drainage. The patient is doing better. She is tolerating her diet. Alert and oriented times 3 and is afebrile. OBJECTIVE VITALS: Temperature is 98.9, pulse 70, blood pressure 159/74, SpO2 of 95%. HEENT: Normocephalic and atraumatic. Pupils reactive to light and accommodation. CV: S1 and S2 normal. Regular rate and rhythm. ABDOMEN: Nontender and nondistended. Positive for drain for the abdominal abscess. Still has a few mL of pus in it. Has been draining in the morning. EXTREMITIES: No clubbing. No cyanosis. No edema. NEUROLOGICAL: Alert and oriented times 3. No focal changes. LAB VALUES: BUN 7, creatinine of 3.6. Hemoglobin of 8.8, hematocrit of 26.8. INR 0.97. ASSESSMENT 1. Intractable nauseas and vomiting, better. 2. Abdominal abscess: Status post drain. Status post recent lumbar spine fusion. 3. Anemia, stable: Has been getting Venofer for iron deficiency anemia. 4. She also has depression: She continues on Pristiq. 5. Pain control with morphine. She is on Merrem and vancomycin. PLAN: Send her home today on Merrem pending home health. Further recommendations per clinical course. She probably will need about 7-10 days of the drain. Will also need at least 10 days of Merrem to be followed up with Dr. Mooney when the patient has been discharged. Further recommendations per clinical course, and also depending on discharge planning as per insurance. Home health is recommended. The patient has chose for home health. Job#: [id number] LEO
[2018-05-08 11:33] VITALS: BP 141/66
== END 2018-05-08 12:52 | disposition home or self-care (01) | DRG 862 ==
LOC: ER 16:57 → ERHOLD 18:49 → IMCU 20:09 → OBSVTOIN 05-04 07:25 → MED/SURG3 05-04 08:23
PROVIDERS: ADMIT Family Medicine; ATTEND Family Medicine
PROC: 0W9J30Z Drainage of Pelvic Cavity with Drainage Device, Percutaneous Approach (ICD-10-PCS; principal; 2018-05-03)
DX: T81.43XA Infection following a procedure, organ and space surgical site, initial encounter (principal); K65.1 Peritoneal abscess; A41.9 Sepsis, unspecified organism; N13.30 Unspecified hydronephrosis; E87.6 Hypokalemia; E86.0 Dehydration; R50.9 Fever, unspecified; I10 Essential (primary) hypertension; E78.5 Hyperlipidemia, unspecified; K21.0 Gastro-esophageal reflux disease with esophagitis; Z87.440 Personal history of urinary (tract) infections; F32.9 Major depressive disorder, single episode, unspecified; D50.9 Iron deficiency anemia, unspecified
CPT/HCPCS: 36415; 36569; 49406; 71045; 71046; 72192; 74177; 74470; 80048; 80053; 80202; 81001; 83540; 83605; 83735; 84466; 85025; 85610; 85730; 87040; 87070; 87071; 87075; 87086; 87205; 87400; 89051; 99152; 99153; 99284; C1729; C1769; G0378; J0692; J1756; J2001; J2185; J2250; J2405; J2550; J2765; J3370; J3480; J7030; Q9967

== ENCOUNTER → 2018-05-15 | Outpatient (CLI) | payer BC ==
[~2018-05-15] MED LIST changes: +CLONIDINE HCL0.1 MG PO; +IOPAMIDOL 300 MG/ML 15ML VIAL IT ONE; +METOCLOPRAMIDE10 MG PO
--- NOTE | 2018-05-15 15:18 | Diagnostic Imaging Report ---
Date and Time: 05/15/2018 Procedure: Left lower quadrant drain sinogram, drain removal biazzi nitrator operator: Dr. Fuller Pre-operative diagnosis: Left lower quadrant abscess Post-operative diagnosis: Resolved left lower quadrant abscess Conscious Sedation: None Additional Medications: None Fluoroscopy time: 0.6 minutes Frontal Air Kerma: 13.5 mGy Contrast used: 5 cc Isovue-300 Estimated blood loss: None Specimens: Drainage catheter, discarded Implants: None DISCUSSION: The patient was placed in the supine position on the fluoroscopic table. A small amount of dilute contrast material (approximately 10 cc) was slowly injected through the drainage catheter and multiple fluoroscopic spot images of the pelvis were obtained (findings below). The retention sutures of the catheter were then cut. The catheter was severed at the hub and removed in total. A sterile dressing was applied. FINDINGS: Contrast injection through the drainage catheter shows no significant residual abscess cavity. A small amount of retrograde passage of contrast material along the catheter is noted, with egress into the dependent pelvis. No opacification of bowel loops to suggest fistulization or traversal of bowel during drainage catheter placement. IMPRESSION: Successful removal of left lower quadrant percutaneous drainage catheter after sinogram showed resolution of abscess cavity. Signed by: Dr. Bunny Fuller M.D. on 05/15/2018 3:15 PM
== END ==
LOC: DX 14:00
PROVIDERS: ATTEND Internal Medicine Infectious Disease
DX: Z48.03 Encounter for change or removal of drains (principal); K65.1 Peritoneal abscess
CPT/HCPCS: 49424; Q9967

== ENCOUNTER → 2018-05-17 | Outpatient (CLI) | payer BC ==
[~2018-05-17] MED LIST changes: -IOPAMIDOL 300 MG/ML 15ML VIAL IT ONE
--- NOTE | 2018-05-17 14:09 | Diagnostic Imaging Report ---
LEFT ANKLE - 3 VIEWS HISTORY: Pain, fell COMPARISON: None available. FINDINGS: Bones: No acute displaced fracture. Subtle 4 mm subchondral lucency at the medial talar dome. Joints: Minimal degenerative changes of the tibiotalar joint. Soft tissues: Nonspecific soft tissue swelling. IMPRESSION: 1. A subtle 4 mm subchondral lucency at the medial talar dome, could reflect a nondisplaced osteochondral fracture. 2. Nonspecific soft tissue swelling. Signed by: Dr. Austyn Damon D.O., M.M.M. on 05/17/2018 2:06 PM
== END ==
LOC: RAD 12:36
PROVIDERS: ATTEND Family Medicine
DX: M25.572 Pain in left ankle and joints of left foot (principal)

== ENCOUNTER → 2018-05-22 | Outpatient (CLI) | payer BC ==
--- NOTE | 2018-05-22 15:27 | Diagnostic Imaging Report ---
TECHNIQUE: Magnetic resonance imaging of the LEFT ANKLE was performed WITHOUT injected contrast. COMPARISON: None available. HISTORY: Ankle pain, swelling FINDINGS: LIGAMENTS: Medial Complex: Intact. Lateral Complex: Inferior tibiofibular ligaments intact. Partial tearing of the anterior talofibular and calcaneofibular ligament. TENDONS: Medial: Posterior tibial and flexor tendons intact. Lateral: Peroneal tendons intact. Superior retinaculum intact. Anterior: Anterior tibial and extensor tendons intact. Achilles: Achilles tendon intact. BONES: No focal or infiltrative bone marrow replacing abnormality. No acute fracture or osteonecrosis. JOINTS: Cartilage: Small osteochondral lesion of the medial talar dome measuring 0.7 x 0.5 cm axial dimension. No unstable defect. Other: Small ankle effusion. SOFT TISSUES: Soft tissue swelling. IMPRESSION: Ankle inversion injury: * Partial tearing of the lateral ankle ligaments. * Osteochondral lesion of the medial talar dome. No unstable defect. * Soft tissue swelling and small effusions. Signed by: Dr. Sam Cárdenas M.D. on 05/22/2018 3:24 PM
== END ==
LOC: MRI 14:08
PROVIDERS: ATTEND Family Medicine
DX: M25.572 Pain in left ankle and joints of left foot (principal)

== ENCOUNTER → 2018-06-04 | Outpatient (CLI) | payer BC ==
[~2018-06-04] MED LIST changes: +IOPAMIDOL 370 MG/ML 200 ML INFUS..BTL INJ ONE; +SODIUM CHLORIDE 0.9% 50ML 50 ML ONE
[2018-06-04 14:18] LABS: BLOOD UREA NITROGEN 16 mg/dL (7-26); BUN/CREATININE RATIO 21 (6-25)
[2018-06-04 14:35] LABS: CREATININE, SERUM 0.75 mg/dL (0.57-1.11); EST GLOMERULAR FILTRATION RATE > 60 ML/MIN (60-)
--- NOTE | 2018-06-04 15:56 | Diagnostic Imaging Report ---
EXAM: CT Abdomen and Pelvis WITH contrast INDICATION: Query abscess COMPARISON: CT Abdomen/Pelvis 05/03/2018. CT pelvic drain evaluation 05/07/18 and fluoroscopic drain check 05/15/18. TECHNIQUE: Abdomen and pelvis were scanned utilizing a multidetector helical scanner from the lung base to the pubic symphysis after administration of IV contrast. Coronal and sagittal reformations were obtained. Routine protocol was performed. Scan was performed when during portal venous phase. IV CONTRAST: 100 cc of Isovue 370 ORAL CONTRAST: Water COMPLICATIONS: None RADIATION DOSE: Total DLP: 188 mGy*cm CTDIvol has been reviewed. It is below the limits set by the Radiation Protocol Committee (RPC). FINDINGS: LINES and TUBES: None. LOWER THORAX: Large hiatal hernia. HEPATOBILIARY: No evidence of focal lesion. No biliary ductal dilation. GALLBLADDER: Status post cholecystectomy. SPLEEN: No splenomegaly. PANCREAS: No focal masses or ductal dilatation. ADRENALS: No adrenal nodules KIDNEYS/URETERS: Kidneys enhance symmetrically. No evidence of solid mass or stone. Resolution of left-sided mild to moderate hydronephrosis. Subcentimeter left renal hypodensities too small to characterize but likely represents a cyst. GI TRACT: No evidence of wall thickening or distension. Right lower quadrant colonic anastomosis. PELVIC ORGANS/BLADDER: Status post hysterectomy. No evidence of recurrent or residual left-sided pelvic collection. Minimal left pelvic residual stranding with punctate focus of air on series 92, image 62. LYMPH NODES: No lymphadenopathy. VESSELS: Scattered atherosclerotic changes in the abdominal aorta and branch vessels. PERITONEUM / RETROPERITONEUM: No free air or fluid. BONES AND SOFT TISSUES: Multilevel degenerative changes of lower lumbar spine. Postsurgical changes status post posterior decompression and fusion from L4 through S1. No evidence of bony destructive changes. Post surgical changes of the anterior abdominal wall. CONCLUSION: No evidence of residual left pelvic/lower abdominal abscess. No drainable fluid collection identified. Resolution of mild to moderate left hydronephrosis. Signed by: Dr. Iram Kramer MD on 06/04/2018 3:53 PM
== END ==
LOC: CT 13:08
PROVIDERS: ATTEND Internal Medicine Infectious Disease
DX: K65.1 Peritoneal abscess (principal)
CPT/HCPCS: 36415; 74177; 82565; 84520; Q9967

== ENCOUNTER → 2019-06-18 | Outpatient (CLI) | payer BC ==
[~2019-06-18] MED LIST changes: -IOPAMIDOL 370 MG/ML 200 ML INFUS..BTL INJ ONE; -SODIUM CHLORIDE 0.9% 50ML 50 ML ONE
--- NOTE | 2019-06-18 11:39 | Diagnostic Imaging Report ---
Upper GI with air-contrast. History: Hiatal hernia. Discussion: The patient was given air crystals, thick barium, and thin barium to drink in upright and prone positions. Multiple images of the esophagus, stomach, and duodenum were obtained. Fluoro time: 0.18 min. Dose: 52.8 mGy (DENISE) The esophagus has normal motility. A moderate-sized hiatal hernia is present. There is no evidence of mucosal irregularity or stricture. Reflux was visualized during the course of the examination. The gastric fundus, body, and antrum are normal in appearance. The duodenal bulb and c-loop are normal in normal appearance. There is no evidence of duodenitis or extrinsic compression. IMPRESSION: Moderate size hiatal hernia without evidence of esophagitis or stricture. Normal appearance of the stomach and duodenum. Signed by: Flex Del Valle on 06/18/2019 11:36 AM
== END ==
LOC: DX 09:35
PROVIDERS: ATTEND Surgery
DX: K44.9 Diaphragmatic hernia without obstruction or gangrene (principal); K21.9 Gastro-esophageal reflux disease without esophagitis
CPT/HCPCS: 74246

== ENCOUNTER 2020-05-05 06:58 | Inpatient (IN) | payer BC, MEDICARE ==
[2020-04-30 17:53] LABS: BASOPHILS # (AUTO) 0.1 (0.0-0.1); BASOPHILS % 1.1 % (0.0-1.0); EOSINOPHILS # (AUTO) 0.1 (0.0-0.4); HEMATOCRIT 31.3 % (34.2-44.1); HEMOGLOBIN 10.2 g/dL (12.0-16.0); LYMPHOCYTES # (AUTO) 2.3 (1.0-3.2); LYMPHOCYTES % 35.7 % (18.0-39.1); MEAN CORPUSCULAR HEMOGLOBIN 26.5 pg (28-32); MEAN CORPUSCULAR HGB CONC 32.6 g/dL (31-35); MEAN CORPUSCULAR VOLUME 81.3 fL (81-99); MONOCYTES # (AUTO) 0.8 (0.2-0.8); MONOCYTES % 11.7 % (4.4-11.3); NEUTROPHILS # (AUTO) 3.1 (2.1-6.9); NEUTROPHILS % 48.7 % (38.7-80.0); PLATELET COUNT 248 x10e3/uL (140-360); RED BLOOD COUNT 3.85 x10e6/uL (3.6-5.1); RED CELL DISTRIBUTION WIDTH 13.4 % (11.7-14.4)
[2020-04-30 18:15] LABS: ANION GAP 11.3 mmol/L (8-16); BLOOD UREA NITROGEN 9 mg/dL (7-26); BUN/CREATININE RATIO 11 (6-25); CALCIUM 8.7 mg/dL (8.4-10.2); CARBON DIOXIDE 27 mmol/L (22-29); CHLORIDE 100 mmol/L (98-107); EST GLOMERULAR FILTRATION RATE > 60 ML/MIN (60-); GLUCOSE 107 mg/dL (74-118); POTASSIUM 3.3 mmol/L (3.5-5.1); SODIUM 135 mmol/L (136-145)
--- NOTE | 2020-05-01 08:26 | Diagnostic Imaging Report ---
EXAMINATION: CHEST 2 VIEWS INDICATION: Preoperative evaluation of the lungs. COMPARISON: None FINDINGS: TUBES and LINES: None. LUNGS: Normal lung volumes. Lungs are clear. No consolidations. PLEURA: No pleural effusion or pneumothorax. HEART AND MEDIASTINUM: The cardiomediastinal silhouette is unremarkable. BONES AND SOFT TISSUES: No acute osseous lesion. Soft tissues are unremarkable. UPPER ABDOMEN: No free air under the diaphragm. IMPRESSION: Normal chest x-ray. Signed by: Thiago Manning MD on 05/01/2020 8:23 AM
[~2020-05-05] VITALS: Ht 157.5 cm; Wt 63.0 kg
[~2020-05-05 06:58] MED LIST changes: +CRESTOR10 MG PO; +HYDRALAZINE HCL25 MG PO; +HYDROCHLOROTHIA25 MG PO
[2020-05-05] MEDS ORDERED: SCOPOLAMINE 1.5 MG PATCH ONE (10:26)
[2020-05-05] MEDS ORDERED: BUPIVACAINE 0.25% 30ML SDV INJ ONE (11:20)
[2020-05-05] MEDS ORDERED: LIDOCAINE 1% W/EPINEPHRINE 20 ML VIAL ONE (11:21)
[2020-05-05] MEDS ORDERED: ONDANSETRON HCL INJ 2MG/ML 2ML 2 MG/ML VIAL IV PRN (13:00)
[2020-05-05] MEDS ORDERED: ONDANSETRON HCL INJ 2MG/ML 2ML 2 MG/ML VIAL ONE (13:07)
[2020-05-05] MEDS ORDERED: PROPOFOL IV EMULSION 10 MG/ML 20 ML VIAL ONE (13:07)
[2020-05-05] MEDS ORDERED: DEXAMETHASONE SOD PHOS INJ 4 MG/ML VIAL ONE (13:07)
[2020-05-05] MEDS ORDERED: SEVOFLURANE INHAL SOLN 250 ML PEN BTL ONE (13:07)
[2020-05-05] MEDS ORDERED: GLYCOPYRROLATE INJ 0.2 MG/ML VIAL ONE (13:07)
[2020-05-05] MEDS ORDERED: ROCURONIUM BROMIDE 10 MG/ML 5ML VIAL IV ONE (13:07)
[2020-05-05] MEDS ORDERED: LIDOCAINE HCL 2% LOCAL INJ 5 ML SDV VIAL INJ ONE (13:07)
[2020-05-05] MEDS ORDERED: NEOSTIGMINE 1 MG/ML 10ML VIAL ONE (13:07)
[2020-05-05] MEDS ORDERED: METOCLOPRAMIDE HCL 10 MG/2ML VIAL ONE (13:08)
[2020-05-05] MEDS ORDERED: HYDROMORPHONE 1MG/1ML INJ ONE (13:22)
--- NOTE | 2020-05-05 13:42 | Operative Report ---
DATE OF PROCEDURE: 05/05/2020 SURGEON: Andrei Mendoza MD PREOPERATIVE DIAGNOSIS: Large hiatal hernia with gastroesophageal reflux disease. POSTOPERATIVE DIAGNOSIS: Large hiatal hernia with gastroesophageal reflux disease. OPERATIONS PERFORMED: Laparoscopic repair of hiatal hernia and Jade fundoplication. ASSISTANTS: 1. Dr. Boni Mendoza. 2. TERRY Foy. ANESTHESIA: General. COMPLICATIONS: None. ESTIMATED BLOOD LOSS: Minimal. DESCRIPTION OF PROCEDURE: With the patient lying in bed in the supine position under good general endotracheal anesthesia, the abdomen was prepped with Betadine solution and draped in the usual manner. A Veress needle was introduced into the right upper quadrant and pneumoperitoneum was established without any difficulty. A 5 mm trocar was placed in the right subcostal region and a 5 mm video laparoscope was placed into the intra-abdominal cavity. Video laparoscopy at this point revealed there were no adhesions to the anterior abdominal wall from the patient's previous surgeries. An 11 mm trocar was then placed in the left upper abdomen. Two 5 mm trocars were placed in the subxiphoid region and another 10 mm trocar was placed in the left anterior axillary line. Laparoscopy at this point revealed the fact that the patient had a large hiatal hernia, probably about half of her stomach up in the chest. The rest of the abdominal exploration was otherwise unremarkable. The peritoneum was then opened over the right crura and the esophagus was then from the hernia sac circumferentially. The short gastrics were then taken down with the Harmonic scalpel. This gave us a satisfactory circumferential view of the hiatus. There was a significant hiatal hernia present. This was then repaired using interrupted sutures of 0 Ethibond, bringing one side of the crura to the other side posteriorly to the esophagus after having the bougie in place. This gave us a satisfactory closure without any tension. The fundus of the stomach that had been previously freed up was then brought in retroesophageal fashion in order to create a 360 degree Jade fundoplication and the fundoplication was performed with interrupted sutures of 0 Ethibond, bringing one side of the fundus to the lower esophagus to the other side of the fundus, creating a nice tension-free Jade fundoplication. After this was done, the bougie was removed. The NG tube was left in the stomach. Hemostasis was ascertained. All the excess fluid was aspirated. The pneumoperitoneum was evacuated and all the trocars were removed under direct vision. The fascia of the 11 mm trocar was then approximated with 0 Vicryl. All layers were infiltrated on the way out with solution of 0.25% Marcaine. Subcutaneous tissue was approximated with 3-0 Vicryl and the skin was closed with subcuticular 5-0 Vicryl. Benzoin, Steri-Strips, and Band- Aids were applied. The sponge, lap, and needle count was correct. The patient tolerated the procedure well and returned to the recovery room in stable condition. MD MARGUERITE Cagle/RHONA /[id number]
--- NOTE | 2020-05-05 13:57 | NUR ---
RECEIVED PATIENT FROM PACU. PATIENT A/O X3, EVEN RESPIRATIONS ON 2LNC. NGT TO LEFT NARE LCWS. EVANS IN PLACE WITH PALE YELLOW URINE. 5 TROCAR SITES TO ABDOMEN C/D/I. RIGHT HAND 20 GAUGE WITH NS @ 100 CC/HR. SCD'S IN PLACE BILATERALLY. ORIENTED PATIENT TO ROOM AND CALL LIGHT. BED LOW, WHEELS LOCKED, SIDE RAILS X2. CALL LIGHT IN REACH WILL CONTINUE TO MONITOR.
[2020-05-05] MEDS: SODIUM CHLORIDE 0.9% 250ML IRRIG IR SCH ×3 (15:05→20:06)
[2020-05-05] MEDS: SODIUM CHLORIDE 0.9% 1000ML 1,000 ML IV SCH (15:06)
[2020-05-05] MEDS: HYDROMORPHONE 1MG/1ML INJ IV PRN ×2 (15:58→21:56)
[2020-05-05] MEDS: PANTOPRAZOLE 40 MG 10ML VIAL IV SCH (15:58)
[2020-05-05 15:59] VITALS: BP 139/77
[2020-05-05 16:03] VITALS: BP 139/77
[2020-05-05 16:30] VITALS: BP 139/77
[2020-05-05] MEDS: METOPROLOL TARTRATE 50 MG TAB PO SCH ×2 (17:00→19:26)
--- NOTE | 2020-05-05 19:45 | NUR ---
PATIENT C/O CHEST PRESSURE 4/10. NO ADVERSE SIGNS OR SYMPTOMS. STABLE VITAL SIGNS. SR PER TELE.
--- NOTE | 2020-05-05 19:48 | NUR ---
SPOKE TO MD JULIO REGARDING PATIENT C/O PRESSURE IN CHEST. NO NEW ORDERS AT THIS TIME.
[2020-05-05] MEDS: CEFAZOLIN SOD 1 GM/NS 50ML 50 ML IV SCH (19:49)
[2020-05-05 20:00] VITALS: BP 125/72
--- NOTE | 2020-05-05 20:00 | NUR ---
IS TEACHING PROVIDED. VERBALIZES AND DEMONSTRATES UNDERSTANDING.
[2020-05-06] VITALS (7 sets, daily range): BP systolic 111–128; BP diastolic 57–70
[2020-05-06] MEDS: SODIUM CHLORIDE 0.9% 1000ML 1,000 ML IV SCH ×3 (00:11→23:05)
[2020-05-06] MEDS: SODIUM CHLORIDE 0.9% 250ML IRRIG IR SCH ×3 (00:21→08:46)
[2020-05-06] MEDS: CEFAZOLIN SOD 1 GM/NS 50ML 50 ML IV SCH (04:30)
--- NOTE | 2020-05-06 04:33 | NUR ---
DAILY EVANS CARE PROVIDED VIA CASTILE SOAP WIPES. VERIFIED NGT PLACEMENT VIA AUSCULTATION.
[2020-05-06 05:30] LABS: BASOPHILS % 0.6 % (0.0-1.0); EOSINOPHILS # (AUTO) 0.1 (0.0-0.4); EOSINOPHILS % 1.4 % (0.0-6.0); HEMATOCRIT 31.7 % (34.2-44.1); HEMOGLOBIN 9.9 g/dL (12.0-16.0); LYMPHOCYTES # (AUTO) 1.4 (1.0-3.2); LYMPHOCYTES % 19.6 % (18.0-39.1); MEAN CORPUSCULAR HEMOGLOBIN 26.3 pg (28-32); MEAN CORPUSCULAR HGB CONC 31.2 g/dL (31-35); MEAN CORPUSCULAR VOLUME 84.3 fL (81-99); MONOCYTES # (AUTO) 0.7 (0.2-0.8); MONOCYTES % 9.6 % (4.4-11.3); NEUTROPHILS % 68.5 % (38.7-80.0); PLATELET COUNT 232 x10e3/uL (140-360); RED BLOOD COUNT 3.76 x10e6/uL (3.6-5.1); RED CELL DISTRIBUTION WIDTH 13.2 % (11.7-14.4)
[2020-05-06 05:57] LABS: ANION GAP 11.5 mmol/L (8-16); BLOOD UREA NITROGEN 9 mg/dL (7-26); BUN/CREATININE RATIO 12 (6-25); CARBON DIOXIDE 28 mmol/L (22-29); CHLORIDE 105 mmol/L (98-107); CREATININE, SERUM 0.75 mg/dL (0.57-1.11); EST GLOMERULAR FILTRATION RATE > 60 ML/MIN (60-); GLUCOSE 115 mg/dL (74-118); POTASSIUM 3.5 mmol/L (3.5-5.1); SODIUM 141 mmol/L (136-145)
--- NOTE | 2020-05-06 07:00 | NUR ---
ASSUMED CARE. AAOX3. ACYANOTIC. PATIENT RESTING IN BED. NO DISTRESS NOTED. CALL LIGHT IN REACH. SIDE RAILS UP X2. BED LOW AND LOCKED.
--- NOTE | 2020-05-06 07:02 | NUR ---
REPORT GIVEN TO DAYSHIFT NURSE. ALERT AND ORIENTED. RESTING IN BED. NO SIGNS IV INFILTRATION. BED LOCKED AND IN LOW POSITION. CALL LIGHT WITHIN REACH.
[2020-05-06] MEDS: METOPROLOL TARTRATE 50 MG TAB PO SCH ×2 (08:45→16:36)
[2020-05-06] MEDS: HYDROMORPHONE 1MG/1ML INJ IV PRN ×3 (08:50→20:43)
--- NOTE | 2020-05-06 12:15 | NUR ---
NGT REMOVED PER PHYSICIAN'S ORDER.
--- NOTE | 2020-05-06 14:50 | NUR ---
PATIENT AMBULATED TO RESTROOM TO VOID. NO DISTRESS NOTED. URINE OUTPUT NOTED, CLEAR YELLOW URINE.
[2020-05-06] MEDS: PANTOPRAZOLE 40 MG 10ML VIAL IV SCH (16:36)
--- OUTSIDE RECORDS SUMMARY | 2020-05-06 19:38 | XMS REPORT | Continuity of Care Document ---
Author Author [facility] t Organization [facility] Address [address] [place] [address] Phone Unavailable Care Team Providers Care Production Staff Worker Name Role Phone Helmettaмаряи MOTLEY Allan Vargas PCP Jayla JULIO Attphys Unavailable DARRON BARKLEY Attphys Unavailable Tanvir ABBASI Attphys Unavailable Mitul JOHNSON Attphys Unavailable Tanvir ABBASI Admphys Unavailable Payers Payer Name Policy Type Policy Number Effective Date Expiration Date S ource Problems This patient has no known problems. Allergies, Adverse Reactions, Alerts Allergy Name Allergy Type Status Severity Reaction(s) Onset Date Inacti ve Date Treating Clinician Comments Source No Known Drug Allergies DA Active U 2018-03-08 00:00:00 [facility] No Known Allergies DA Active U 2014-08-14 00:00:00 [facility] Social History Social Habit Start Date Stop Date Quantity Comments Source Sex Assigned At [facility] Alcohol intake 2014-04-16 00:00:00 2014-04-16 00:00:00 Current drinker of alcohol (finding) [facility] r Medications Ordered Medication Name Filled Medication Name Start Date Stop Da te Current Medication? Ordering Clinician Indication Dosage Frequency Signature (SIG) Comments Components Source metoprolol (LOPRESSOR) 100 MG tablet 2015-03-12 07:52:25 Ye s 100mg Q.5D Take 100 mg by mouth 2 (two) times daily. [facility] lisinopril (PRINIVIL,ZESTRIL) 20 MG tablet 2015-03-12 07:52:25 Yes 20mg QD Take 20 mg by mouth daily. [facility] atorvastatin (LIPITOR) 10 MG tablet 2015-03-12 07:52:25 Yes 10mg QD Take 10 mg by mouth daily. [facility] Procedures This patient has no known procedures. Results Test Description Test Time Test Comments Results Result Comments Source CHEST 2 VIEWS 2020-05-01 08:22:00 [facility] 1955 Sex: [place] [address] Patient Name: PEDRO ALEJO MR #: [id number] : 1955 Age/Sex: 65/F Req #: [id number] [facility] Physician: Ordered by: HAO JULIO MD Report #: [id number] Location: OR Room/Bed: Procedure: [id number] DX/CHEST 2 VIEWS Exam Date: 04/30/20 Exam Time: 1735 REPORT STATUS: Signed EXAMINATION: CHEST 2 VIEWS INDICATION: Preoperative evaluation of the lungs. COMPARISON: None FINDINGS: TUBES and LINES: None. LUNGS: Normal lung volumes. Lungs are clear. No consolidations. PLEURA: No pleural effusion or pneumothorax. HEART AND MEDIASTINUM: The cardiomediastinal silhouette is unremarkable. BONES AND SOFT TISSUES: No acute osseous lesion. Soft tissues are unremarkable. UPPER ABDOMEN: No free air under the diaphragm. IMPRESSION: Normal chest x-ray. Signed by: Shani Fowler MD on 05/01/2020 8:23 AM Dictated By: SHANI FOWLER MD 2 Transcribed By: ZANE on 05/01/20822 COPY TO: HAO JULIO MD UPPER GI W/AIR CONTR 2019-06-18 11:24:00 [place] [address] Patient Name: PEDRO ALEJO MR #: [id number] : 1955 Age/Sex: 64/F Req #: [id number] Adm Physician: Ordered by: HAO JULIO MD Report #: [id number] Location: DX Room/Bed: Procedure: [id number] DX/UPPER GI W/AIR CONTR Exam Date: 06/18/19 Exam Time: 1025 REPORT STATUS: Signed Upper GI with air-contrast. History: Hiatal hernia. Discussion: The patient was given air crystals, thick barium, and thin barium to drink in upright and prone positions. Multiple images of the esophagus, stomach, and duodenum were obtained. Fluoro time: 0.18 min. Dose: 52.8 mGy (DENISE) The esophagus has normal motility. A moderate-sized hiatal hernia is present. There is no evidence of mucosal irregularity or stricture. Reflux was visualized during the course of the examination. The gastric fundus, body, and antrum are normal in appearance. The duodenal bulb and c-loop are normal in normal appearance. Th ere is no evidence of duodenitis or extrinsic compression. IMPRESSION: Moderate size hiatal hernia without evidence of esophagitis or stricture. Normal appearance of the stomach and duodenum. Signed by: Flex Del Valle on 06/18/2019 11:36 AM Dictated By: FLEX DEL VALLE MD 1136 Transcribed By: ZANE on 06/18/19 1136 COPY TO: HAO JULIO MD CT ABDOMEN/PELVIS W 2018-06-04 15:31:00 [place] [address] Patient Name: PEDRO ALEJO MR #: [id number] : 1955 Age/Sex: 63/F Req #: [id number] Adm Physician: Ordered by: DARRON BARKLEY MD Report #: [id number] Location: CT Room/Bed: Procedure: [id number] CT/CT ABDOMEN/PELVIS W Exam Date: 06/04/18 Exam Time: 1340 REPORT STATUS: Signed EXAM: CT Abdomen and Pelvis WITH contrast INDICATION: Query abscess COMPARISON: CT Abdomen/Pelvis 05/03/2018. CT pelvic drain evaluation 05/07/18 and fluoroscopic drain check 05/15/18. TECHNIQUE: Abdomen and pelvis were scanned utilizing a multidetector helical scanner from the lung base to the pubic symphysis after administration of IV contrast. Coronal and sagittal reformations were obtained. Routine protocol was performed. Scan was performed when during portal venous phase. IV CONTRAST: 100 cc of Isovue 370 ORAL CONTRAST: Water COMPLICATIONS: None RADIATION DOSE: Total DLP: 188 mGy*cm CTDIvol has been reviewed. It is below the limits set by the Radiation Protocol Committee (RPC). FINDINGS: LINES and TUBES: None. LOWER THORAX: Large hiatal hernia. HEPATOBILIARY: No evidence of focal lesion. No biliary ductal dilation. GALLBLADDER: Status post cholecystectomy. SPLEEN: No splenomegaly. PANCREAS: No focal masses or ductal dilatation. ADRENALS: No adrenal nodules KIDNEYS/URETERS: Kidneys enhance symmetrically. No evidence of solid mass or stone. Resolution of left-sided mild to moderate hydronephrosis. Subcentimeter left renal hypodensities too small to characterize but likely represents a cyst. GI TRACT: No evidence of wall thickening or distension. Right lower quadrant colonic anastomosis. PELVIC ORGANS/BLADDER: Status post hysterectomy. No evidence of recurrent or residual left-sided pelvic collection. Minimal left pelvic residual stranding with punctate focus of air on series 92, image 62. LYMPH NODES: No lymphadenopathy. VESSELS: Scattered atherosclerotic changes in the abdominal aorta and branch vessels. PERITONEUM / RETROPERITONEUM: No free air or fluid. BONES AND SOFT TISSUES: Multilevel degenerative changes of lower lumbar spine. Postsurgical changes status post posterior decompression and fusion from L4 through S1. No evidence of bony destructive changes. Post surgical changes of the anterior abdominal wall. CONCLUSION: No evidence of residual left pelvic/lower abdominal abscess. No drainable fluid collection identified. Resolution of mild to moderate left hydronephrosis. Signed by: Dr. So King MD on 06/04/2018 3:53 PM Dictated By: SO KING MD 1169 Transcribed By: ZANE on 06/04/18 7824 COPY TO: DARRON BARKLEY MD MRI ANKLE LEFT WO 2018-05-22 15:21:00 [place] [address] Patient Name: PEDRO ALEJO MR #: [id number] : 1955 Age/Sex: 63/F Req #: [id number] Adm Physician: Ordered by: RUKHSANA ABBASI MD Report #: [id number] Location: MRI Room/Bed: Procedure: [id number] MRI/MRI ANKLE LEFT WO Exam Date: Exam Time: REPORT STATUS: Signed TECHNIQUE: Magnetic resonance imaging of the LEFT ANKLE was performed WITHOUT injected contrast. COMPARISON: None available. HISTORY: Ankle pain, swelling FINDINGS: LIGAMENTS: Medial Complex: Intact. Lateral Complex: Inferior tibiofibular ligaments intact. Partial tearing of the anterior talofibular and calcaneofibular ligament. TENDONS: Medial: Posterior tibial and flexor tendons intact. Lateral: Peroneal tendons intact. Superior retinaculum intact. Anterior: Anterior tibial and extensor tendons intact. Achilles: Achilles tendon intact. BONES: No focal or infiltrative bone marrow replacing abnormality. No acute fracture or osteonecrosis. JOINTS: Cartilage: Small osteochondral lesion of the medial talar dome measuring 0.7 x 0.5 cm axial dimension. No unstable d efect. Other: Small ankle effusion. SOFT TISSUES: Soft tissue swelling. IMPRESSION: Ankle inversion injury: * Partial tearing of the lateral ankle ligaments. * Osteochondral lesion of the medial talar dome. No unstable defect. * Soft tissue swelling and small effusions. Signed by: Dr. Lauren Duvall M.D. on 05/22/2018 3:24 PM Dictated By: LAUREN DUVALL MD 1524 Transcribed By: ZANE on 05/22/18 1524 COPY TO: RUKHSANA ABBASI MD ANKLE 3+ VIEWS LEFT 2018-05-17 14:03:00 [place] [address] Patient Name: PEDRO ALEJO MR #: [id number] : 1955 Age/Sex: 63/F Req #: [id number] Adm Physician: Ordered by: RUKHSANA ABBASI MD Report #: [id number] Location: RAD Room/Bed: Procedure: [id number] DX/ANKLE 3+ VIEWS LEFT Exam Date: 05/17/18 Exam Time: 1330 REPORT STATUS: Signed LEFT ANKLE - 3 VIEWS HISTORY: Pain, fell COMPARISON: None available. FINDINGS: Bones: No acute displaced fracture. Subtle 4 mm subchondral lucency at the medial talar dome. Joints: Minimal degenerative changes of the tibiotalar joint. Soft tissues: Nonspecific soft tissue swelling. IMPRESSION: 1. A subtle 4 mm subchondral lucency at the medial talar dome, could reflect a nondisplaced osteochondral fracture. 2. Nonspecific soft tissue swelling. Signed by: Dr. Austyn Rodríguez DPaolaO., M.M.M. on 05/17/2018 2:06 PM Dictated By: AUSTYN RODRÍGUEZ DO 05 Transcribed By: ZANE on 05/17/18 140 COPY TO: RUKHSANA ABBASI MD INJECTION/ABSCESS/CYST ASSESS 2018-05-15 15:11:00 [place] [address] Patient Name: PEDRO ALEJO MR #: [id number] : 1955 Age/Sex: 63/F Req #: [id number] Adm Physician: Ordered by: DARRON BARKLEY MD Report #: [id number] Location: DX Room/Bed: Procedure: [id number] DX/INJECTION/ABSCESS/CYST ASSESS Exam Date: Exam Time: REPORT STATUS: Signed Date and Time: 05/15/2018 Procedure: Left lower quadrant drain sinogram, drain removal ultimate hoops scoreboard operator: Dr. Fuller Pre-operative diagnosis: Left lower quadrant abscess Post-operative diagnosis: Resolved left lower quadrant abscess Conscious Sedation: None Additional Medications: None Fluoroscopy time: 0.6 minutes Frontal Air Kerma: 13.5 mGy Contrast used: 5 cc Isovue-300 Estimated blood loss: None Specimens: Drainage catheter, discarded Implants: None DISCUSSION: The patient was placed in the supine position on the fluoroscopic table. A small amount of dilute contrast material (approximately 10 cc) was slowly injected through the drainage catheter and multiple fluoroscopic spot images of the pelvis were obtained (findings below). The retention sutures of the catheter were then cut. The catheter was severed at the hub and removed in total. A sterile dressing was applied. FINDINGS: Contrast injection through the drainage catheter shows no significant residual abscess cavity. A small amount of retrograde passage of contrast material along the catheter is noted, with egress into the dependent pelvis. No opacification of bowel loops to suggest fistulization or traversal of bowel during drainage catheter placement. IMPRESSION: Successful removal of left lower quadrant percutaneous drainage catheter after sinogram showed resolution of abscess cavity. Signed by: Dr. Moises Fuller M.D. on 05/15/2018 3:15 PM Dictated By: MOISES FULLER MD 2139 Transcribed By: ZANE on 05/15/18 0982 COPY TO: DARRON BARKLEY MD CT PELVIS WO 2018-05-07 15:20:00 [place] [address] Patient Name: PEDRO ALEJO MR #: [id number] : 1955 Age/Sex: 63/F Req #: [id number] Adm Physician: RUKHSANA ABBASI MD Ordered by: MAXIMILIANO DE DO Report #: [id number] Location: [facility] Room/Bed: [facility] Procedure: [id number] CT/CT PELVIS WO Exam Date: Exam Time: REPORT STATUS: Signed CT the pelvis. History: Pelvic abscess with drainage catheter placed 4 days prior. Comparison: CT pelvis dated 05/03/2018. Technique: Multidetector imaging of the pelvis was performed from the level of the iliac crests to the proximal femurs. No IV or oral contrast was administered. Scans through the pelvis were performed without contrast administration then followed by contrast administration into the pelvic abscess drainage catheter. Dose reduction technique was utilized. DLP: 364.51 mGy-cm Discussion: Left-sided pelvic drainage catheter noted in place. Size of the fluid collection is smaller. Contrast injection shows some contrast around the pigtail catheter extending near the iliacus muscle. Of note is that there is some contrast within loops of bowel suggesting that the drainage catheter has traversed a loop of bowel. Seeing how there is still purulent drainage in the bag it was elected not to remove this catheter. Infectious disease Physician was notified of these findings. Prior to removal of the catheter in 5-7 days contrast should be injected again with a fluoroscopic monitoring to evaluate for any GI bowel loop communication or opacification. IMPRESSION: 1. Left-sided pelvic drainage catheter is described above. 2. Catheter was not removed at this time. 3. Prior to catheter removal a fluoroscopic injection looking for bowel loop opacification is suggested. Signed by: Dr. Maximiliano De DO on 05/07/2018 3:31 PM Dictated By: MAXIMILIANO DE DO 153 Transcribed By: ZANE on 05/07/18 153 COPY TO: MAXIMILIANO DE DO CHEST XRAY LINE PLACEMENT 2018-05-06 15:04:00 [facility] [address] [place] [address] Patient Name: PEDRO ALEJO MR #: [id number] : 1955 Age/Sex: 63/F Req #: [id number] Adm Physician: RUKHSANA ABBASI MD Ordered by: DARRON BARKLEY MD Report #: [id number] Location: [facility] Room/Bed: [facility] Procedure: [id number] DX/CHEST XRAY LINE PLACEMENT Exam Date: Exam Time: REPORT STATUS: Signed Examination: Single AP view of the chest. COMPARISON: None. INDICATION: PICC line placement DISCUSSION: Lines/tubes: Right PICC line placement appears to be overlying the superior vena cava Lungs: The lungs are well inflated and clear. There is no evidence of pneumonia or pulmonary edema. Pleura: There is no pleural effusion or pneumothorax. Heart and mediastinum: The heart and the mediastinum are unremarkable. Bones and soft tissues: No acute bony abnormalities. IMPRESSION: 1. Right PICC line placement appears to be overlying the superior vena cava Signed by: Dr. Lauren Duvall M.D. on 05/06/2018 3:05 PM Dictated By: LAUREN DUVALL MD 1505 Transcribed By: ZANE on 05/06/18 1505 COPY TO: DARRON BARKLEY MD MOD SEDATE ADD 15 MIN<5YRS 2018-05-06 07:55:00 [facility] [address] [place] [address] Patient Name: PEDRO ALEJO MR #: [id number] : 1955 Age/Sex: 63/F Req #: [id number] Adm Physician: RUKHSANA ABBASI MD Ordered by: SO KING MD Report #: [id number] Location: MED/SURG3 Room/Bed: [facility] Procedure: [id number] CT/MOD SEDATE ADD 15 MIN<5YRS Exam Date: 05/03/18 Exam Time: 1631 REPORT STATUS: Signed PROCEDURE: SONAL ABD FLUID/ABSC W/CATH-CT COMPARISON: CT Abdomen/Pelvis 05/03/2018. INDICATIONS: intra abdominal ct guded drainage ROLL TABLE OPERATOR: So King MD ANESTHESIA: Moderate sedation administered by IR nursing. Continuous hemodynamic monitoring was performed. MEDICATIONS: 20 cc of 1% subcutaneous lidocaine Fentanyl and versed per nursing administration records FINDINGS: Informed consent was obtained. The patient was prepped and draped in sterile fashion. A path to the left pelvic collection was identified. Local 1% subcutaneous lidocaine was administered. With CT guidance, an 18 gauge Chiba needle was advanced into the collection. Subsequently, an Amplatz wire was placed into the collection. The needle was removed. Serial dilatation was performed. Subsequently, we placed a 10 Fr pigtail locking loop catheter into the collection. A total of 25 cc of purulent sanguinous fluid was removed. The catheter was secured with two Ethilon sutures and a sterile bandage was placed. CONCLUSION: CT guided drainage of left pelvic fluid collection as above. PLAN: Please flush 5 cc of saline towards the catheter and 5 cc towards the patient q 8 hours as inpatient and q 12 hours upon discharge for catheter patency. Please inform IR team once drainage is less than 10 cc/day, for assessment of catheter removal. Recommend contacting the patient's orthopedic surgery team regarding the proximity of the collection to the fixation hardware. Dictated by: SO KING M.D. on 05/06/2018 at 7:55 Electronically approved by: SO KING M.D. on 05/06/2018 at 7:55 Dictated By: SO KING MD 075 Transcribed By: FAITH on 05/06/18 0755 COPY TO: SO KING MD MOD SEDATE ADD 15 MIN<5YRS 2018-05-06 07:55:00 [place] [address] Patient Name: PEDRO ALEJO MR #: [id number] : 1955 Age/Sex: 63/F Req #: [id number] [facility] Physician: RUKHSANA ABBASI MD Ordered by: SO KING MD Report #: [id number] Location: MED/SURG3 Room/Bed: [facility] Procedure: [id number] CT/MOD SEDATE ADD 15 MIN<5YRS Exam Date: 05/03/18 Exam Time: 1615 REPORT STATUS: Signed PROCEDURE: DRN ABD FLUID/ABSC W/CATH-CT COMPARISON: CT Abdomen/Pelvis 05/03/2018. INDICATIONS: intra abdominal ct guded drainage ROLL TABLE OPERATOR: So King MD ANESTHESIA: Moderate sedation administered by IR nursing. Continuous hemodynamic monitoring was performed. MEDICATIONS: 20 cc of 1% subcutaneous lidocaine Fentanyl and versed per nursing administration records FINDINGS: Informed consent was obtained. The patient was prepped and draped in sterile fashion. A path to the left pelvic collection was identified. Local 1% subcutaneous lidocaine was administered. With CT guidance, an 18 gauge Chiba needle was advanced into the collection. Subsequently, an Amplatz wire was placed into the collection. The needle was removed. Serial dilatation was performed. Subsequently, we placed a 10 Fr pigtail locking loop catheter into the collection. A total of 25 cc of purulent sanguinous fluid was removed. The catheter was secured with two Ethilon sutures and a sterile bandage was placed. CONCLUSION: CT guided drainage of left pelvic fluid collection as above. PLAN: Please flush 5 cc of saline towards the catheter and 5 cc towards the patient q 8 hours as inpatient and q 12 hours upon discharge for catheter patency. Please inform IR team once drainage is less than 10 cc/day, for assessment of catheter removal. Recommend contacting the patient's orthopedic surgery team regarding the proximity of the collection to the fixation hardware. Dictated by: SO KING M.D. on 05/06/2018 at 7:55 Electronically approved by: SO KING M.D. on 05/06/2018 at 7:55 Dictated By: SO KING MD 0755 Transcribed By: FAITH on 05/06/18 0755 COPY TO: SO KING MD MOD SEDATE ADD 15 MIN<5YRS 2018-05-06 07:55:00 [place] [address] Patient Name: PEDRO ALEJO MR #: [id number] : 1955 Age/Sex: 63/F Req #: [id number] Adm Physician: RUKHSANA ABBASI MD Ordered by: SO KING MD Report #: [id number] Location: MED/SURG3 Room/Bed: [facility] Procedure: [id number] CT/MOD SEDATE ADD 15 MIN<5YRS Exam Date: 05/03/18 Exam Time: 1559 REPORT STATUS: Signed PROCEDURE: SONAL MINA FLUID/ABSC W/CATH-CT COMPARISON: CT Abdomen/Pelvis 05/03/2018. INDICATIONS: intra abdominal ct guded drainage ROLL TABLE OPERATOR: So King MD ANESTHESIA: Moderate sedation administered by IR nursing. Continuous hemodynamic monitoring was performed. MEDICATIONS: 20 cc of 1% subcutaneous lidocaine Fentanyl and versed per nursing administration records FINDINGS: Informed consent was obtained. The patient was prepped and draped in sterile fashion. A path to the left pelvic collection was identified. Local 1% subcutaneous lidocaine was administered. With CT guidance, an 18 gauge Chiba needle was advanced into the collection. Subsequently, an Amplatz wire was placed into the collection. The needle was removed. Serial dilatation was performed. Subsequently, we placed a 10 Fr pigtail locking loop catheter into the collection. A total of 25 cc of purulent sanguinous fluid was removed. The catheter was secured with two Ethilon sutures and a sterile bandage was placed. CONCLUSION: CT guided drainage of left pelvic fluid collection as above. PLAN: Please flush 5 cc of saline towards the catheter and 5 cc towards the patient q 8 hours as inpatient and q 12 hours upon discharge for catheter patency. Please inform IR team once drainage is less than 10 cc/day, for assessment of catheter removal. Recommend contacting the patient's orthopedic surgery team regarding the proximity of the collection to the fixation hardware. Dictated by: SO KING M.D. on 05/06/2018 at 7:55 Electronically approved by: SO KING M.D. on 05/06/2018 at 7:55 Dictated By: SO KING MD 0755 Transcribed By: FAITH on 05/06/18 0755 COPY TO: SO KING MD MOD SEDATE ADD 15 MIN<5YRS 2018-05-06 07:55:00 [place] [address] Patient Name: PEDRO ALEJO MR #: [id number] : 1955 Age/Sex: 63/F Req #: [id number] Adm Physician: RUKHSANA ABBASI MD Ordered by: SO KING MD Report #: [id number] Location: MED/SURG3 Room/Bed: [facility] Procedure: [id number] CT/MOD SEDATE ADD 15 MIN<5YRS Exam Date: 05/03/18 Exam Time: 1543 REPORT STATUS: Signed PROCEDURE: DRN ABD FLUID/ABSC W/CATH-CT COMPARISON: CT Abdomen/Pelvis 05/03/2018. INDICATIONS: intra abdominal ct guded drainage ROLL TABLE OPERATOR: So King MD ANESTHESIA: Moderate sedation administered by IR nursing. Continuous hemodynamic monitoring was performed. MEDICATIONS: 20 cc of 1% subcutaneous lidocaine Fentanyl and versed per nursing administration records FINDINGS: Informed consent was obtained. The patient was prepped and draped in sterile fashion. A path to the left pelvic collection was identified. Local 1% subcutaneous lidocaine was administered. With CT guidance, an 18 gauge Chiba needle was advanced into the collection. Subsequently, an Amplatz wire was placed into the collection. The needle was removed. Serial dilatation was performed. Subsequently, we placed a 10 Fr pigtail locking loop catheter into the collection. A total of 25 cc of purulent sanguinous fluid was removed. The catheter was secured with two Ethilon sutures and a sterile bandage was placed. CONCLUSION: CT guided drainage of left pelvic fluid collection as above. PLAN: Please flush 5 cc of saline towards the catheter and 5 cc towards the patient q 8 hours as inpatient and q 12 hours upon discharge for catheter patency. Please inform IR team once drainage is less than 10 cc/day, for assessment of catheter removal. Recommend contacting the patient's orthopedic surgery team regarding the proximity of the collection to the fixation hardware. Dictated by: SO KING M.D. on 05/06/2018 at 7:55 Electronically approved by: SO KING M.D. on 05/06/2018 at 7:55 Dictated By: SO KING MD 0755 Transcribed By: FAITH on 05/06/18 0755 COPY TO: SO KING MD, ABD FLUID/ABSC W CATH-CT 2018-05-06 07:55:00 [place] [address] Patient Name: PEDRO ALEJO MR #: [id number] : 1955 Age/Sex: 63/F Req #: [id number] Adm Physician: RUKHSANA ABBASI MD Ordered by: RUKHSANA ABBASI MD Report #: [id number] Location: [facility] Room/Bed: [facility] Procedure: [id number] CT/SONAL ABD FLUID/ABSC W CATH-CT Exam Date: Exam Time: REPORT STATUS: Signed PROCEDURE: SONAL MINA FLUID/ABSC W/CATH- CT COMPARISON: CT Abdomen/Pelvis 05/03/2018. INDICATIONS: intra abdominal ct guded drainage ROLL TABLE OPERATOR: So King MD ANESTHESIA: Moderate sedation administered by IR nursing. Continuous hemodynamic monitoring was performed. MEDICATIONS: 20 cc of 1% subcutaneous lidocaine Fentanyl and versed per nursing administration records FINDINGS: Informed consent was obtained. The patient was prepped and draped in sterile fashion. A path to the left pelvic collection was identified. Local 1% subcutaneous lidocaine was administered. With CT guidance, an 18 gauge Chiba needle was advanced into the collection. Subsequently, an Amplatz wire was placed into the collection. The needle was removed. Serial dilatation was performed. Subsequently, we placed a 10 Fr pigtail locking loop catheter into the collection. A total of 25 cc of purulent sanguinous fluid was removed. The catheter was secured with two Ethilon sutures and a sterile bandage was placed. CONCLUSION: CT guided drainage of left pelvic fluid collection as above. PLAN: Please flush 5 cc of saline towards the catheter and 5 cc towards the patient q 8 hours as inpatient and q 12 hours upon discharge for catheter patency. Please inform IR team once drainage is less than 10 cc/day, for assessment of catheter removal. Recommend contacting the patient's orthopedic surgery team regarding the proximity of the collection to the fixation hardware. Dictated by: SO KING M.D. on 05/06/2018 at 7:55 Electronically approved by: SO KING M.D. on 05/06/2018 at 7:55 Dictated By: SO KING MD Transcribed By: FAITH on 05/06/18 075 COPY TO: RUKHSANA ABBASI MD MOD SEDATE ADD 15 MIN<5YRS 2018-05-06 07:55:00 [place] [address] Patient Name: PEDRO ALEJO MR #: [id number] : 1955 Age/Sex: 63/F Req #: [id number] Adm Physician: RUKHSANA ABBASI MD Ordered by: SO KING MD Report #: [id number] Location: MED/SURG3 Room/Bed: [facility] Procedure: [id number] CT/MOD SEDATE ADD 15 MIN<5YRS Exam Date: 05/03/18 Exam Time: 1527 REPORT STATUS: Signed PROCEDURE: DRN ABD FLUID/ABSC W/CATH-CT COMPARISON: CT Abdomen/Pelvis 05/03/2018. INDICATIONS: intra abdominal ct guded drainage ROLL TABLE OPERATOR: So King MD ANESTHESIA: Moderate sedation administered by IR nursing. Continuous hemodynamic monitoring was performed. MEDICATIONS: 20 cc of 1% subcutaneous lidocaine Fentanyl and versed per nursing administration records FINDINGS: Informed consent was obtained. The patient was prepped and draped in sterile fashion. A path to the left pelvic collection was identified. Local 1% subcutaneous lidocaine was administered. With CT guidance, an 18 gauge Chiba needle was advanced into the collection. Subsequently, an Amplatz wire was placed into the collection. The needle was removed. Serial dilatation was performed. Subsequently, we placed a 10 Fr pigtail locking loop catheter into the collection. A total of 25 cc of purulent sanguinous fluid was removed. The catheter was secured with two Ethilon sutures and a sterile bandage was placed. CONCLUSION: CT guided drainage of left pelvic fluid collection as above. PLAN: Please flush 5 cc of saline towards the catheter and 5 cc towards the patient q 8 hours as inpatient and q 12 hours upon discharge for catheter patency. Please inform IR team once drainage is less than 10 cc/day, for assessment of catheter removal. Recommend contacting the patient's orthopedic surgery team regarding the proximity of the collection to the fixation hardware. Dictated by: SO KING M.D. on 05/06/2018 at 7:55 Electronically approved by: SO KING M.D. on 05/06/2018 at 7:55 Dictated By: SO KING MD 0755 Transcribed By: FAITH on 05/06/18 0755 COPY TO: SO KING MD MOD SEDATE ADD 15 MIN<5YRS 2018-05-06 07:55:00 [place] [address] Patient Name: PEDRO ALEJO MR #: [id number] : 1955 Age/Sex: 63/F Req #: [id number] Adm Physician: RUKHSANA ABBASI MD Ordered by: SO KING MD Report #: [id number] Location: MED/SURG3 Room/Bed: [facility] Procedure: [id number] CT/MOD SEDATE ADD 15 MIN<5YRS Exam Date: 05/03/18 Exam Time: 1511 REPORT STATUS: Signed PROCEDURE: DRN ABD FLUID/ABSC W/CATH-CT COMPARISON: CT Abdomen/Pelvis 05/03/2018. INDICATIONS: intra abdominal ct guded drainage ROLL TABLE OPERATOR: So King MD ANESTHESIA: Moderate sedation administered by IR nursing. Continuous hemodynamic monitoring was performed. MEDICATIONS: 20 cc of 1% subcutaneous lidocaine Fentanyl and versed per nursing administration records FINDINGS: Informed consent was obtained. The patient was prepped and draped in sterile fashion. A path to the left pelvic collection was identified. Local 1% subcutaneous lidocaine was administered. With CT guidance, an 18 gauge Chiba needle was advanced into the collection. Subsequently, an Amplatz wire was placed into the collection. The needle was removed. Serial dilatation was performed. Subsequently, we placed a 10 Fr pigtail locking loop catheter into the collection. A total of 25 cc of purulent sanguinous fluid was removed. The catheter was secured with two Ethilon sutures and a sterile bandage was placed. CONCLUSION: CT guided drainage of left pelvic fluid collection as above. PLAN: Please flush 5 cc of saline towards the catheter and 5 cc towards the patient q 8 hours as inpatient and q 12 hours upon discharge for catheter patency. Please inform IR team once drainage is less than 10 cc/day, for assessment of catheter removal. Recommend contacting the patient's orthopedic surgery team regarding the proximity of the collection to the fixation hardware. Dictated by: SO KING M.D. on 05/06/2018 at 7:55 Electronically approved by: SO KING M.D. on 05/06/2018 at 7:55 Dictated By: SO KING MD 0755 Transcribed By: FAITH on 05/06/18 0755 COPY TO: SO KING MD, MD SEDATE INITIAL > 5 YRS 2018-05-06 07:55:00 [place] [address] Patient Name: PEDRO ALEJO MR #: [id number] : 1955 Age/Sex: 63/F Req #: [id number] Adm Physician: RUKHSANA ABBASI MD Ordered by: SO KING MD Report #: [id number] Location: MED/SURG3 Room/Bed: [facility] Procedure: [id number] CT/ SEDATE INITIAL > 5 YRS Exam Date: 05/06/18 Exam Time: 1455 REPORT STATUS: Signed PROCEDURE: SONAL MINA FLUID/ABSC W/CATH-CT COMPARISON: CT Abdomen/Pelvis 05/03/2018. INDICATIONS: intra abdominal ct guded drainage ROLL TABLE OPERATOR: So King MD ANESTHESIA: Moderate sedation administered by IR nursing. Continuous hemodynamic monitoring was performed. MEDICATIONS: 20 cc of 1% subcutaneous lidocaine Fentanyl and versed per nursing administration records FINDINGS: Informed consent was obtained. The patient was prepped and draped in sterile fashion. A path to the left pelvic collection was identified. Local 1% subcutaneous lidocaine was administered. With CT guidance, an 18 gauge Chiba needle was advanced into the collection. Subsequently, an Amplatz wire was placed into the collection. The needle was removed. Serial dilatation was performed. Subsequently, we placed a 10 Fr pigtail locking loop catheter into the collection. A total of 25 cc of purulent sanguinous fluid was removed. The catheter was secured with two Ethilon sutures and a sterile bandage was placed. CONCLUSION: CT guided drainage of left pelvic fluid collection as above. PLAN: Please flush 5 cc of saline towards the catheter and 5 cc towards the patient q 8 hours as inpatient and q 12 hours upon discharge for catheter patency. Please inform IR team once drainage is less than 10 cc/day, for assessment of catheter removal. Recommend contacting the patient's orthopedic surgery team regarding the proximity of the collection to the fixation hardware. Dictated by: SO KING M.D. on 05/06/2018 at 7:55 Electronically approved by: SO KING M.D. on 05/06/2018 at 7:55 Dictated By: SO KING MD 4 Transcribed By: FAITH on 05/06/18754 COPY TO: SO KING MD IR CONSULT 2018-05-06 07:55:00 [place] [address] Patient Name: PEDRO ALEJO MR #: [id number] : 1955 Age/Sex: 63/F Req #: [id number] Adm Physician: RUKHSANA ABBASI MD Ordered by: RUKHSANA ABBASI MD Report #: [id number] Location: MED/SURG3 Room/Bed: [facility] Procedure: [id number] DX/IR CONSULT Exam Date: Exam Time: REPORT STATUS: Signed PROCEDURE: SONAL MINA FLUID/ABSC W/CATH-CT COMPARISON: CT Abdomen/Pelvis 05/03/2018. INDICATIONS: intra abdominal ct guded drainage ROLL TABLE OPERATOR: So King MD ANESTHESIA: Moderate sedation administered by IR nursing. Continuous hemodynamic monitoring was performed. MEDICATIONS: 20 cc of 1% subcutaneous lidocaine Fentanyl and versed per nursing administration records FINDINGS: Informed consent was obtained. The patient was prepped and draped in sterile fashion. A path to the left pelvic collection was identified. Local 1% subcutaneous lidocaine was administered. With CT guidance, an 18 gauge Chiba needle was advanced into the collection. Subsequently, an Amplatz wire was placed into the collection. The needle was removed. Serial dilatation was performed. Subsequently, we placed a 10 Fr pigtail locking loop catheter into the collection. A total of 25 cc of purulent sanguinous fluid was removed. The catheter was secured with two Ethilon sutures and a sterile bandage was placed. CONCLUSION: CT guided drainage of left pelvic fluid collection as above. PLAN: Please flush 5 cc of saline towards the catheter and 5 cc towards the patient q 8 hours as inpatient and q 12 hours u zackary discharge for catheter patency. Please inform IR team once drainage is less than 10 cc/day, for assessment of catheter removal. Recommend contacting the patient's orthopedic surgery team regarding the proximity of the collection to the fixation hardware. Dictated by: SO KING M.D. on 05/06/2018 at 7:55 Electronically approved by: SO KING M.D. on 05/06/2018 at 7:55 Dictated By: SO KING MD 0755 Transcribed By: FAITH on 05/06/18 0755 COPY TO: RUKHSANA ABBASI MD CT ABDOMEN/PELVIS W 2018-05-03 10:56:00 [place] [address] Patient Name: PEDRO ALEJO MR #: [id number] : 1955 Age/Sex: 63/F Req #: [id number] Adm Physician: RUKHSANA ABBASI MD Ordered by: RUKHSANA ABBASI MD Report #: [id number] Location: [facility] Room/Bed: [place] [address] Procedure: [id number] CT/CT ABDOMEN/PELVIS W Exam Date: 05/03/18 Exam Time: 919 REPORT STATUS: Signed PROCEDURE: CT ABDOMEN AND PELVIS WITH CONTRAST TECHNIQUE: The abdomen and pelvis were scanned utilizing a multidetector helical scanner from the diaphragm to the lesser trochanter after the IV administration of 100 cc of Isovue 370 and the oral administration of 900 cc of water. Coronal and sagittal multiplanar reformations were obtained. COMPARISON: CT Abdomen/Pelvis 02/22/2010. INDICATIONS: NAUSEA, VOMITING, FEVER, ABDOMEN PAIN FINDINGS: LOWER THORAX: Large hiatal hernia. HEPATOBILIARY: No focal hepatic lesions. No biliary ductal dilatation. Status post cholecystectomy. SPLEEN: No splenomegaly. PANCREAS: No focal masses or ductal dilatation. ADRENALS: No adrenal nodules. KIDNEYS/URETERS: Mild to moderate left hydronephrosis likely due to mass effect on the mid ureter from the left pelvic inflammatory process. No stones or solid mass lesions. Subcentimeter left renal hypodensity is too small to characterize, but likely represents a cyst. PELVIC ORGANS/BLADDER: Status post hysterectomy. There is a 2.3 x 4.4 x 6.5 cm (oblique AP x TV x SI) left pelvic/lower abdominal fluid collection which is contiguous with a smaller 2.4 x 1 cm collection. There is surrounding inflammatory changes. The spinal fixation left S1 pedicle screw appears to be within the superior aspect of the collection. PERITONEUM / RETROPERITONEUM: Small amount of free fluid in the pelvis. LYMPH NODES: No lymphadenopathy. VESSELS: Unremarkable. GI TRACT: No distention or wall thickening. Interval removal of previously noted likely mucocele at the location of the appendix. BONES AND SOFT TISSUES: Multilevel degenerative changes of the lower lumbar spine. Post surgical changes are present in the anterior abdominal wall and lower back. Post surgical changes related to posterior decompression and fusion at L4-S1, the inferior left S1 pedicle screw appears to be in the superior aspect of the collection. No definite bony destructive change. IMPRESSION: Left pelvic multiloculated collection with surrounding inflammatory change, measuring up to 6.5 cm. The S1 pedicle screw appears to be within the collection, no definite osteomy elitis. Discussion with surgical team given surgery approximately 2 weeks prior is suggested. IR consult for drainage is also suggested. Above findings discussed with Dr. Rukhsana Abbasi on 05/03/18 at 1042 AM. Surrounding inflammatory change with likely mass effect on the left mid ureter with mild to moderate hydronephrosis. Drainage of the left pelvic collection is suggested to decrease mass effect. Dictated by: SO KING M.D. on 05/03/2018 at 10:56 Electronically approved by: SO KING M.D. on 05/03/2018 at 10:56 Dictated By: SO KING MD 1056 Transcribed By: FAITH on 05/03/18 1056 COPY TO: RUKHSANA ABBASI MD CHEST 2 VIEWS 2018-05-02 18:39:00 [place] [address] Patient Name: PEDRO ALEJO MR #: [id number] : 1955 Age/Sex: 63/F Req #: [id number] Adm Physician: Ordered by: JOSE BAILON MD Report #: [id number] Location: ER Room/Bed: Procedure: [id number] DX/CHEST 2 VIEWS Exam Date: 05/02/18 Exam Time: 1805 REPORT STATUS: Signed EXAMINATION: PA and lateral views of the chest. COMPARISON: Chest 2 views 04/27/2018 CLINICAL HISTORY: Fever DISCUSSION: Lines/tubes: None. Lungs: The lungs are well inflated and clear. There is no evidence of pneumonia or pulmonary edema. Pleura: There is no pleural effusion or pneumothorax. Heart and mediastinum: Cardiomediastinal silhouette is unremarkable. Pulmonary vasculature is normal. Bones and soft tissues: No acute bony abnormalities. IMPRESSION: No acute cardiopulmonary abnormalities. Signed by: Dr. Francis Thomas M.D. on 05/02/2018 6:39 PM Dictated By: FRANCIS THOMAS MD 38 Transcribed By: ZANE on 05/02/181838 COPY TO: JOSE BAILON MD CHEST 2 VIEWS 2018-04-27 19:40:00 [place] [address] Patient Name: PEDRO ALEJO MR #: [id number] : 1955 Age/Sex: 63/F Req #: [id number] Adm Physician: Ordered by: DAVIDSON LOUISE NP Report #: [id number] Location: ER Room/Bed: Procedure: [id number] DX/CHEST 2 VIEWS Exam Date: 04/27/18 Exam Time: 1908 REPORT STATUS: Signed CHEST 2 VIEWS, Technique: CHEST 2 VIEWS Clinical history: Fever Comparison: 08/02/2015 DISCUSSION: Borderline cardiomegaly. Small to moderate hiatal hernia. Well- defined right middle lobe and lingular opacity and no effusion or pneumothorax . 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 Recommend 6-8 week follow-up to reassess. Signed by: Dr Cady Long MD on 04/27/2018 7:44 PM Dictated By: CADY LONG MD 43 Transcribed By: ZANE on 04/27/181943 COPY TO: DAVIDSON LOUISE NP U/S, THYROID 2017-04-23 10:25:00 Reason for Exam:->Thryoid no dule FINAL REPORT Ultrasound of the thyroid. CLINICAL HISTORY: Thyroid nodule. COMPARISON STUDY: June 29, 2016. FINDINGS: The right thyroid lobe measures 4.6 x 2.1 x 1.5 cm and left lobe measures 3.8 x 1.5 x 1.3 cm. The isthmus measures 2 mm. There are bilateral thyroid nodules. In the lower pole of the right lobe is a 0.8 x 0.8 x 0.7 cm (previously 0.7 x 0.9 x 0.9 cm) heteroge neous isoechoic nodule. In the midpole is a 0.2 x 0.2 x 0.2 cm hypoechoic nodule which was not previously measured. On the left side, a 1.4 x 0.7 x 1.0 cm (previously 1.4 x 0.6 x 0.8 cm) cystic nodule is seen with an internal 0.2 x 0.3 x 0.2 cm echogenic focus demonstrating ring down artifact, likely a colloid cyst. IMPRESSION:1. Bilateral thyroid nodules, essentially stable from previous. Signed: Anuel Lainez MDReport Verified Date/Time: 04/23/2017 10:25:37 Reading Location: [address] Radiology Reading Room SES (PARANASAL[facility] [place] [address] Patient Name: PEDRO ALEJO MR #: [id number] : 1955 Age/Sex: 62/F Req #: [id number] Adm Physician: Ordered by: RUKHSANA ABBASI MD Report #: [id number] Location: [facility] Room/Bed: Procedure: [id number] DX/SINUSES (PARANASAL)MIN 3VIEWS Exam Date: 06/15/17 Exam Time: 1510 REPORT STATUS: Signed PROCEDURE: X-RAY PARANASAL SINUSES, COMPLETE COMPARISON: None. INDICATIONS: CHRONIC SINUSITIS FINDINGS: The paranasal sinuses are clear. No fluid levels are identified. No expansile or destructive osseous lesions are seen. No evidence of fracture. CONCLUSION: No radiographic evidence of acute sinusitis. Maxillofacial CT is recommended as a more sensitive exam if there is clinical concern for sinusitis. Francis Thomas M.D. Dictated by: Francis Thomas M.D. on 06/15/2017 at 16:24 Electronically approved by: Francis Thomas M.D. on 06/15/2017 at 16:24 Dictated By: FRANCIS THOMAS MD 162 Transcribed By: FAITH on 06/15/17 1624 COPY TO: RUKHSANA ABBASI MD
--- OUTSIDE RECORDS SUMMARY | 2020-05-06 19:38 | XMS REPORT | Clinical Summary ---
Author Author JESS [facility] Address Unknown Phone Unavailable Care Team Providers Care Art Therapist Name Role Phone Sam Romero DO PCP Sharpless Unavailable Allergies No Known Allergies [...] Packs/Day Years Used Unknown If Ever Smoked Drinks/Week oz/Week Comments Alcohol Use Yes Sex Assigned at Date Recorded Not on file Last Filed Vital Signs Not on file Plan of Treatment Not on file Results Not on fileafter 05/05/2019 Insurance Type Payer Benefit Subscriber ID Effective Phone Address Plan / Dates Group HMO/POS [facility] [id number] [address] CARE POS [employer] (Home) [place] [phone]
[2020-05-07] VITALS (8 sets, daily range): BP systolic 125–170; BP diastolic 60–85
[2020-05-07] MEDS: HYDROMORPHONE 1MG/1ML INJ IV PRN ×6 (00:41→20:44)
[2020-05-07 05:55] LABS: BASOPHILS % 0.3 % (0.0-1.0); EOSINOPHILS # (AUTO) 0.2 (0.0-0.4); EOSINOPHILS % 3.1 % (0.0-6.0); HEMATOCRIT 28.3 % (34.2-44.1); HEMOGLOBIN 9.1 g/dL (12.0-16.0); LYMPHOCYTES # (AUTO) 1.2 (1.0-3.2); LYMPHOCYTES % 17.8 % (18.0-39.1); MEAN CORPUSCULAR HEMOGLOBIN 27.2 pg (28-32); MEAN CORPUSCULAR HGB CONC 32.2 g/dL (31-35); MEAN CORPUSCULAR VOLUME 84.5 fL (81-99); MONOCYTES # (AUTO) 0.8 (0.2-0.8); MONOCYTES % 11.5 % (4.4-11.3); NEUTROPHILS # (AUTO) 4.5 (2.1-6.9); NEUTROPHILS % 66.9 % (38.7-80.0); PLATELET COUNT 183 x10e3/uL (140-360); RED BLOOD COUNT 3.35 x10e6/uL (3.6-5.1); RED CELL DISTRIBUTION WIDTH 13.3 % (11.7-14.4)
[2020-05-07 06:18] LABS: BLOOD UREA NITROGEN 5 mg/dL (7-26); BUN/CREATININE RATIO 8 (6-25); CALCIUM 7.8 mg/dL (8.4-10.2); CARBON DIOXIDE 25 mmol/L (22-29); CHLORIDE 105 mmol/L (98-107); CREATININE, SERUM 0.65 mg/dL (0.57-1.11); EST GLOMERULAR FILTRATION RATE > 60 ML/MIN (60-); GLUCOSE 97 mg/dL (74-118); SODIUM 138 mmol/L (136-145)
--- NOTE | 2020-05-07 07:36 | NUR ---
REPORT GIVEN TO DAYSHIFT NURSE. ALERT AND ORIENTED. RESTING AT BEDSIDE. NO SIGNS IV INFILTRATION. BED LOCKED AND IN LOW POSITION. CALL LIGHT WITHIN REACH.
--- NOTE | 2020-05-07 07:37 | NUR ---
BEDSIDE SHIFT REPORT RECEIVED FROM PM NURSE. PT AMBULATING TO BATHROOM, NO S/S DISTRESS, IN STABLE CONDITION.
--- NOTE | 2020-05-07 08:48 | NUR ---
PAGED DR. JULIO REGARDING PT'S POTASSIUM LEVELS THIS MORNING. AWAITING CALLBACK.
[2020-05-07] MEDS: METOPROLOL TARTRATE 50 MG TAB PO SCH ×2 (08:56→16:33)
[2020-05-07] MEDS: POTASSIUM CHLORIDE 20 MEQ TAB CR PO SCH ×2 (11:28→15:49)
--- NOTE | 2020-05-07 13:40 | NUR ---
report given to ZOEY Ryan for transfer of care.
[2020-05-07] MEDS: PANTOPRAZOLE 40 MG 10ML VIAL IV SCH (15:49)
--- NOTE | 2020-05-07 19:11 | NUR ---
REPORT GIVEN TO ONCOMING NURSE OF PATIENT'S STATUS. NO S/S OF ACUTE DISTRESS NOTED. SIDE RAILS UPX2, CALL LIGHT WITHIN REACH, AT BEDSIDE.
[2020-05-07] MEDS: HYDRALAZINE HCL 25 MG TAB PO SCH (20:35)
[2020-05-08] VITALS: BP 150/82
[2020-05-08] MEDS: HYDROMORPHONE 1MG/1ML INJ IV PRN ×3 (00:14→08:31)
--- NOTE | 2020-05-08 03:45 | NUR ---
PROVIDED REPEAT BEDSIDE EDUCATION REGARDING TCDB AND INCENTIVE SPIROMETER. VERBALIZES AND DEMONSTRATES UNDERSTANDING.
[2020-05-08 04:00] VITALS: BP 158/87
--- NOTE | 2020-05-08 04:34 | NUR ---
PATIENT C/O PAIN AND LEAKING TO 20G R HAND IV WITH SALINE FLUSH. 20 G IV TO R AC STARTED. BLOOD RETURN. SALINE FLUSH. CDI DRESSING APPLIED. TOLERATED WELL.
[2020-05-08 06:44] LABS: BASOPHILS % 0.3 % (0.0-1.0); EOSINOPHILS # (AUTO) 0.3 (0.0-0.4); EOSINOPHILS % 5.2 % (0.0-6.0); HEMATOCRIT 30.6 % (34.2-44.1); HEMOGLOBIN 9.8 g/dL (12.0-16.0); LYMPHOCYTES # (AUTO) 1.1 (1.0-3.2); LYMPHOCYTES % 17.2 % (18.0-39.1); MEAN CORPUSCULAR HEMOGLOBIN 26.9 pg (28-32); MEAN CORPUSCULAR VOLUME 84.1 fL (81-99); MONOCYTES # (AUTO) 0.9 (0.2-0.8); MONOCYTES % 13.8 % (4.4-11.3); PLATELET COUNT 213 x10e3/uL (140-360); RED BLOOD COUNT 3.64 x10e6/uL (3.6-5.1); RED CELL DISTRIBUTION WIDTH 13.2 % (11.7-14.4)
[2020-05-08 07:08] LABS: ANION GAP 12.8 mmol/L (8-16); BLOOD UREA NITROGEN < 5 mg/dL (7-26); CALCIUM 8.3 mg/dL (8.4-10.2); CARBON DIOXIDE 25 mmol/L (22-29); CHLORIDE 103 mmol/L (98-107); EST GLOMERULAR FILTRATION RATE > 60 ML/MIN (60-); GLUCOSE 92 mg/dL (74-118); POTASSIUM 3.8 mmol/L (3.5-5.1); SODIUM 137 mmol/L (136-145)
[2020-05-08 07:09] LABS: BUN/CREATININE RATIO 8 (6-25)
--- NOTE | 2020-05-08 07:19 | NUR ---
REPORT GIVEN TO DAYSHIFT NURSE. ALERT AND ORIENTED. RESTING IN BED. NO SIGNS IV INFILTRATION. BED LOCKED AND IN LOW POSITION. CALL LIGHT WITHIN REACH.
[2020-05-08] MEDS ORDERED: LINACLOTIDE 145 MCG CAPSULE PO SCH (07:30)
[2020-05-08 08:40] VITALS: BP 158/87
[2020-05-08 08:44] VITALS: BP 145/85
[2020-05-08] MEDS ORDERED: HYDROCHLOROTHIAZIDE 25 MG TAB PO SCH (09:00)
[2020-05-08] MEDS: HYDRALAZINE HCL 25 MG TAB PO SCH (09:06)
[2020-05-08] MEDS: METOPROLOL TARTRATE 50 MG TAB PO SCH (09:06)
== END 2020-05-08 10:55 | disposition home or self-care (01) | DRG 328 ==
LOC: OR 06:58 → PACU V 12:55 → MED/SURG 14:09
PROVIDERS: ADMIT Surgery; ATTEND Surgery
PROC: 0BQT4ZZ Repair Diaphragm, Percutaneous Endoscopic Approach (ICD-10-PCS; principal; 2020-05-08)
PROC: 0DV44ZZ Restriction of Esophagogastric Junction, Percutaneous Endoscopic Approach (ICD-10-PCS; 2020-05-08)
DX: K21.9 Gastro-esophageal reflux disease without esophagitis (principal); K44.9 Diaphragmatic hernia without obstruction or gangrene; Z20.828 Contact with and (suspected) exposure to other viral communicable diseases; I10 Essential (primary) hypertension
CPT/HCPCS: 36415; 71046; 80048; 85025; 93005; J0690; J1100; J1170; J2001; J2405; J2710; J2765; J7030

== ENCOUNTER → 2021-06-04 | Day surgery (SDC) | payer BC, MEDICARE ==
[2021-06-02 08:45] LABS: BASOPHILS # (AUTO) 0.1 (0.0-0.1); BASOPHILS % 1.2 % (0.0-1.0); EOSINOPHILS # (AUTO) 0.1 (0.0-0.4); EOSINOPHILS % 3.2 % (0.0-6.0); HEMATOCRIT 38.8 % (34.2-44.1); HEMOGLOBIN 12.6 g/dL (12.0-16.0); LYMPHOCYTES % 25.2 % (18.0-39.1); MEAN CORPUSCULAR HEMOGLOBIN 28.6 pg (28-32); MEAN CORPUSCULAR HGB CONC 32.5 g/dL (31-35); MEAN CORPUSCULAR VOLUME 88.2 fL (81-99); MONOCYTES # (AUTO) 0.6 (0.2-0.8); MONOCYTES % 13.9 % (4.4-11.3); NEUTROPHILS # (AUTO) 2.3 (2.1-6.9); NEUTROPHILS % 56.3 % (38.7-80.0); PLATELET COUNT 246 x10e3/uL (140-360); RED CELL DISTRIBUTION WIDTH 12.9 % (11.7-14.4)
[~2021-06-04] MED LIST changes: +CATAPRES-TTS 11 EACH TD; +EPHEDRINE SULFATE INJ 50 MG/ML VIAL ONE; +HYOSCYAMINE SULFATE 0.5 MG/ML INJ ONE; +LIDOCAINE HCL 2% LOCAL INJ 5 ML SDV VIAL INJ ONE; +MIDAZOLAM HCL 2 MG/2 ML VIAL ONE; +POTASSIUM PO; +PROPOFOL IV EMULSION 10 MG/ML 20 ML VIAL ONE
[2021-06-04 09:00] VITALS: BP 111/59
== END | disposition home or self-care (01) ==
LOC: OR 07:04
PROVIDERS: ATTEND Internal Medicine Gastroenterology
DX: K29.50 Unspecified chronic gastritis without bleeding (principal); Z86.010 Personal history of colon polyps; K20.90 Esophagitis, unspecified without bleeding; K28.9 Gastrojejunal ulcer, unspecified as acute or chronic, without hemorrhage or perforation; K44.9 Diaphragmatic hernia without obstruction or gangrene; K59.00 Constipation, unspecified; K58.9 Irritable bowel syndrome, unspecified; K21.9 Gastro-esophageal reflux disease without esophagitis; K64.8 Other hemorrhoids; D64.9 Anemia, unspecified; I10 Essential (primary) hypertension; E78.00 Pure hypercholesterolemia, unspecified; Z98.890 Other specified postprocedural states; Z01.810 Encounter for preprocedural cardiovascular examination; Z01.812 Encounter for preprocedural laboratory examination; Z20.822 Contact with and (suspected) exposure to COVID-19; Z79.899 Other long term (current) drug therapy; Z86.16 Personal history of COVID-19; Z80.0 Family history of malignant neoplasm of digestive organs
CPT/HCPCS: 36415; 43239; 43450; 45378; 85025; 93005; C9113; J1980; J2001; J2250; J2704; U0002

== ENCOUNTER 2022-04-20 20:38 | Emergency (ER) | payer MEDICARE, BC, OTHER ==
[~2022-04-20] VITALS: Ht 157.5 cm; Wt 48.1 kg
[~2022-04-20 20:38] MED LIST changes: -EPHEDRINE SULFATE INJ 50 MG/ML VIAL ONE; -HYOSCYAMINE SULFATE 0.5 MG/ML INJ ONE; -LIDOCAINE HCL 2% LOCAL INJ 5 ML SDV VIAL INJ ONE; -MIDAZOLAM HCL 2 MG/2 ML VIAL ONE; -PROPOFOL IV EMULSION 10 MG/ML 20 ML VIAL ONE
[2022-04-20 22:53] VITALS: BP 153/94
== END 2022-04-20 22:50 | disposition home or self-care (01) ==
LOC: ER 20:45
DX: S00.83XA Contusion of other part of head, initial encounter (principal); W07.XXXA Fall from chair, initial encounter; Y92.89 Other specified places as the place of occurrence of the external cause; I10 Essential (primary) hypertension; D64.9 Anemia, unspecified; K21.9 Gastro-esophageal reflux disease without esophagitis
CPT/HCPCS: 70450; 72125; 99283

== ENCOUNTER 2022-11-21 12:36 | Emergency (ER) | payer MEDICARE, BC ==
[~2022-11-21] VITALS: Ht 157.5 cm; Wt 48.1 kg
[~2022-11-21 12:36] MED LIST changes: -EPHEDRINE SULFATE INJ 50 MG/ML VIAL ONE; -FENTANYL CITRATE/PF 100MCG/2 ML INJ ONE; -GLUCAGON FOR INJ 1 MG VIAL ONE; -LIDOCAINE HCL 2% LOCAL INJ 5 ML SDV VIAL INJ ONE; -METOCLOPRAMIDE HCL 10 MG/2ML VIAL ONE; -ONDANSETRON HCL INJ 2MG/ML 2ML 2 MG/ML VIAL ONE; -POVIDONE IODINE 0.05% 0.05 % ML PO ONE; -PROPOFOL IV EMULSION 0 ML IV ONE; -PROPOFOL IV EMULSION 10 MG/ML 20 ML VIAL ONE; -PROPOFOL IV EMULSION 50 ML IV ONE
[2022-11-21 12:45] VITALS: O2SAT 100
[2022-11-21 13:27] LABS: BASOPHILS % 0.6 % (0.0-1.0); EOSINOPHILS % 0.4 % (0.0-6.0); HEMATOCRIT 37.5 % (34.2-44.1); HEMOGLOBIN 12.6 g/dL (12.0-16.0); LYMPHOCYTES # (AUTO) 1.3 (1.0-3.2); LYMPHOCYTES % 19.4 % (18.0-39.1); MEAN CORPUSCULAR HEMOGLOBIN 29.3 pg (28-32); MEAN CORPUSCULAR HGB CONC 33.6 g/dL (31-35); MEAN CORPUSCULAR VOLUME 87.2 fL (81-99); MONOCYTES # (AUTO) 0.6 (0.2-0.8); MONOCYTES % 8.7 % (4.4-11.3); NEUTROPHILS # (AUTO) 4.7 (2.1-6.9); NEUTROPHILS % 70.6 % (38.7-80.0); PLATELET COUNT 225 x10e3/uL (140-360); RED CELL DISTRIBUTION WIDTH 12.2 % (11.7-14.4)
[2022-11-21 13:46] LABS: ALBUMIN/GLOBULIN RATIO 1.4 (0.8-2.0); ANION GAP 16.3 mmol/L (8-16); CREATININE, SERUM 1.06 mg/dL (0.57-1.11); POTASSIUM 3.3 mmol/L (3.5-5.1)
== END 2022-11-21 14:37 | disposition home or self-care (01) ==
LOC: ER 12:40
DX: S00.83XA Contusion of other part of head, initial encounter (principal); W01.198A Fall on same level from slipping, tripping and stumbling with subsequent striking against other object, initial encounter; Y93.01 Activity, walking, marching and hiking; Y92.89 Other specified places as the place of occurrence of the external cause; I10 Essential (primary) hypertension; D64.9 Anemia, unspecified; K21.9 Gastro-esophageal reflux disease without esophagitis
CPT/HCPCS: 36415; 70450; 72125; 80053; 84484; 85025; 93005; 99284

== ENCOUNTER → 2022-11-21 | Day surgery (SDC) | payer MEDICARE, BC ==
[2022-11-20 12:10] LABS: BASOPHILS # (AUTO) 0.1 (0.0-0.1); BASOPHILS % 1.1 % (0.0-1.0); EOSINOPHILS # (AUTO) 0.2 (0.0-0.4); EOSINOPHILS % 3.9 % (0.0-6.0); HEMATOCRIT 36.5 % (34.2-44.1); HEMOGLOBIN 11.9 g/dL (12.0-16.0); LYMPHOCYTES # (AUTO) 1.7 (1.0-3.2); LYMPHOCYTES % 31.3 % (18.0-39.1); MEAN CORPUSCULAR HEMOGLOBIN 29.2 pg (28-32); MEAN CORPUSCULAR HGB CONC 32.6 g/dL (31-35); MEAN CORPUSCULAR VOLUME 89.7 fL (81-99); MONOCYTES # (AUTO) 0.6 (0.2-0.8); MONOCYTES % 11.5 % (4.4-11.3); NEUTROPHILS # (AUTO) 2.8 (2.1-6.9); NEUTROPHILS % 51.5 % (38.7-80.0); PLATELET COUNT 233 x10e3/uL (140-360); RED BLOOD COUNT 4.07 x10e6/uL (3.6-5.1); RED CELL DISTRIBUTION WIDTH 12.4 % (11.7-14.4)
[~2022-11-21] MED LIST changes: +BUSPIRONE HCL5 MG PO; +CLONIDINE HCL0.2 MG PO; +DICYCLOMINE HCL20 MG PO; +EPHEDRINE SULFATE INJ 50 MG/ML VIAL ONE; +FENTANYL CITRATE/PF 100MCG/2 ML INJ ONE; +GLUCAGON FOR INJ 1 MG VIAL ONE; +LIDOCAINE HCL 2% LOCAL INJ 5 ML SDV VIAL INJ ONE; +METOCLOPRAMIDE HCL 10 MG/2ML VIAL ONE; +ONDANSETRON HCL INJ 2MG/ML 2ML 2 MG/ML VIAL ONE; +PANTOPRAZOLE SO20 MG PO; +POVIDONE IODINE 0.05% 0.05 % ML PO ONE; +PROPOFOL IV EMULSION 0 ML IV ONE; +PROPOFOL IV EMULSION 10 MG/ML 20 ML VIAL ONE; +PROPOFOL IV EMULSION 50 ML IV ONE; +PROPRANOLOL HCL80 MG PO; +PROTONIX40 MG/ML; +TRAZODONE HCL100 MG PO
[2022-11-21 16:54] VITALS: TEMP 97
[2022-11-21 17:20] VITALS: BP 137/76; PULSE 61; RESP 16; O2SAT 97
[2022-11-21 17:31] LABS: WBC,FECAL (FECAL LACTOFERRIN) NEGATIVE (NEGATIVE)
== END | disposition home or self-care (01) ==
LOC: OR 08:00
PROVIDERS: ATTEND Internal Medicine Gastroenterology
DX: K20.90 Esophagitis, unspecified without bleeding (principal); K29.50 Unspecified chronic gastritis without bleeding; K52.9 Noninfective gastroenteritis and colitis, unspecified; K21.9 Gastro-esophageal reflux disease without esophagitis; K44.9 Diaphragmatic hernia without obstruction or gangrene; K62.89 Other specified diseases of anus and rectum; I10 Essential (primary) hypertension; E78.5 Hyperlipidemia, unspecified; F41.9 Anxiety disorder, unspecified; F32.A Depression, unspecified; Z88.8 Allergy status to other drugs, medicaments and biological substances; Z01.810 Encounter for preprocedural cardiovascular examination; Z01.812 Encounter for preprocedural laboratory examination; Z87.01 Personal history of pneumonia (recurrent); Z87.19 Personal history of other diseases of the digestive system; Z98.890 Other specified postprocedural states; Z86.16 Personal history of COVID-19; Z80.0 Family history of malignant neoplasm of digestive organs
CPT/HCPCS: 36415; 43239; 43450; 45380; 83630; 83993; 85025; 87045; 87177; 87324; 87328; 87449; 88305; 88342; 93005; C9113; J1610; J2001; J2405; J2704 ×2; J2765; J3010

== ENCOUNTER → 2024-11-19 | Outpatient (REF) | payer MEDICARE, BC | LOC: MRI 09:57 | PROVIDERS: ATTEND Family Medicine | DX: M65.842 Other synovitis and tenosynovitis, left hand (principal) ==

== ENCOUNTER → 2025-02-23 | Day surgery (SDC) | payer MEDICARE, BC ==
[2025-02-17 09:24] LABS: BASOPHILS % 1.1 % (0.0-1.0); EOSINOPHILS % 6.3 % (0.0-6.0); LYMPHOCYTES % 28.2 % (18.0-39.1); MONOCYTES % 13.1 % (4.4-11.3); NEUTROPHILS % 51.1 % (38.7-80.0); RED CELL DISTRIBUTION WIDTH 12.9 % (11.7-14.4)
[~2025-02-23] MED LIST changes: +ACETAMINOPHEN 1000 MG/100 ML 100 ML IV ONE; -CATAPRES-TTS 11 EACH TD; +CATAPRES-TTS 11 EACH TOP; +DEXAMETHASONE SOD PHOS INJ 4 MG/ML SDV ONE; +FENTANYL CITRATE/PF 100MCG/2 ML INJ ONE; +LIDOCAINE HCL 2% LOCAL INJ 5 ML SDV VIAL INJ ONE; +ONDANSETRON HCL INJ 2MG/ML 2ML 2 MG/ML VIAL ONE; +POTASSIUM CHLO10 ME1 PO; +PROPOFOL IV EMULSION 10 MG/ML 20 ML VIAL ONE; +SINGULAIR4 MG PO
[2025-02-23] MEDS: LACTATED RINGER'S 1,000 ML ONE (05:56)
[2025-02-23 07:42] VITALS: TEMP 97.7
[2025-02-23] MEDS: ACETAMINOPHEN 1000 MG/100 ML IV ONE (07:48)
[2025-02-23] MEDS: KETOROLAC TROMETHAMINE 30 MG/ML VIAL ONE (07:48)
[2025-02-23] MEDS: ONDANSETRON HCL INJ 2MG/ML 2ML 2 MG/ML VIAL ONE (07:58)
[2025-02-23 08:40] VITALS: BP 130/70; PULSE 55; RESP 15; O2SAT 98
== END | disposition home or self-care (01) ==
LOC: OR 05:25
PROVIDERS: ATTEND Specialist
DX: M65.4 Radial styloid tenosynovitis [de Quervain] (principal); I10 Essential (primary) hypertension; E78.00 Pure hypercholesterolemia, unspecified; M19.90 Unspecified osteoarthritis, unspecified site; K44.9 Diaphragmatic hernia without obstruction or gangrene; K21.9 Gastro-esophageal reflux disease without esophagitis; F32.A Depression, unspecified; F41.9 Anxiety disorder, unspecified; Z79.899 Other long term (current) drug therapy; Z01.810 Encounter for preprocedural cardiovascular examination; Z01.812 Encounter for preprocedural laboratory examination
CPT/HCPCS: 25000; 36415; 71046; 85025; 93005; J0131; J0690; J1100; J1885; J2003; J2405; J2704; J3010; J7121